=== PATIENT | female | born 1925 | race Caucasian/White ===

== ENCOUNTER → 2016-10-06 | Outpatient (CLI) | payer BC ==
[~2016-10-06] MED LIST: ACET325T96 PO; AMIO200T4 PO; ASPI81TA28 PO; ATOR-24 PO; Antibiotic PO; B-COCAP2 PO; BISA-16 PO; BUME2TAB3 PO; CALC500C3 PO; CLR10 PO; CRD200 PO; CRG625 PO; FAMO20TA11 PO; FAMO20TA9 PO; FERR1TAB23 PO; INSDGI SC; INSU100I2 SQ; LEVO100T PO; LEVO112T2 PO; LNX125 PO; MECL1TAB42 PO; METO-217 PO; METO25TA3 PO; MULT-513 PO; OXYC-57 PO; POLY335019 PO; RANI150T3 PO; ROSU10TA24 PO; ROSU5TAB PO; SENN-61 PO; SODIENE12 RE; VTMD PO; WARF2TAB PO
[2016-10-06 18:12] LABS: BASO % 0.6 %; BASO ABS # 0.04 K/uL (0-0.2); COMPLETE YES; EOS % 0.8 %; IG% 0.2 %; LYMPH ABS # 2.09 K/uL (1.2-3.4); MEAN CELL VOLUME 98.7 fL (80-100); MEAN CORPUSCULAR HEMOGLOBIN 30.9 pg (25-34); MEAN CORPUSCULAR HGB CONC 31.4 g/dl (32-36); MEAN PLATELET VOLUME 10.3 fL (7.4-10.4); MONO % 10.1 %; NEUT % 56.3 %; PLATELET COUNT 263 K/uL (130-400); RED BLOOD COUNT 3.75 M/uL (4.2-5.4); WHITE BLOOD COUNT 6.53 K/uL (4.8-10.8)
[2016-10-06 18:23] LABS: ALT/SGPT 30 U/L (12-78); AST/SGOT 40 U/L (15-37); BLOOD UREA NITROGEN 37 mg/dl (7-18); BUN/CREATININE RATIO 10.1 (10-20); CALCIUM 8.5 mg/dl (8.5-10.1); CARBON DIOXIDE 28 mmol/L (21-32); CHLORIDE 103 mmol/L (98-107); GLUCOSE 110 mg/dl (70-99); SODIUM 140 mmol/L (136-145)
[2016-10-06 18:32] LABS: CHOLESTEROL 129 mg/dl (0-200); CHOLESTEROL/HDL RATIO 1.6; HDL CHOLESTEROL 81 mg/dl; LDL CHOLESTEROL CALCULATED 30 mg/dl; TOTAL IRON BINDING CAPACITY 205 mcg/dl (250-450); TRIGLYCERIDES 89 mg/dl (0-150); VERY LOW DENSITY LIPOPROT CALC 18 mg/dl
[2016-10-07 06:27] LABS: ESTIMATED AVERAGE GLUCOSE 131 mg/dl; HA1C FLAG Normal (Normal)
== END | disposition home or self-care (01) ==
LOC: C.LABMFLN 08:07
PROVIDERS: ATTEND Family Medicine
DX: I48.91 Unspecified atrial fibrillation (principal); E78.00 Pure hypercholesterolemia, unspecified; E03.9 Hypothyroidism, unspecified; E55.9 Vitamin D deficiency, unspecified; I10 Essential (primary) hypertension; E21.3 Hyperparathyroidism, unspecified; D50.9 Iron deficiency anemia, unspecified; E11.21 Type 2 diabetes mellitus with diabetic nephropathy

== ENCOUNTER → 2016-12-15 | Day surgery (SDC) | payer BC ==
[2016-12-15] VITALS (7 sets, daily range): BP systolic 120–173; BP diastolic 62–75; PULSE 92–102; TEMP 36.3–36.7; O2SAT 94–97; Ht 160 cm; Wt 87.0 kg
[~2016-12-15] VITALS: Ht 160 cm; Wt 87.0 kg
[~2016-12-15] MED LIST changes: +ARISTA ABSORBABLE HEMOSTAT 3GM TOP ONE; -ASPI81TA28 PO; +CEFAZOLIN 1000MG/55 ML D5W IV SCH; +CEFAZOLIN 2000 MG/60 ML D5W IV SCH; +CEFAZOLIN IV 1,000 MG in DEXTROSE 5% 50ML 50 ML IV ONE; -CRG625 PO; +D5W AND 1/4NSS 1,000 ML IV SCH; -FAMO20TA9 PO; +FENTANYL CITRATE INJ 50 MCG/1 ML 2 ML VIAL IV ONE; +FENTANYL CITRATE INJ 50 MCG/1 ML 2 ML VIAL ONE; +HEPARIN SOD (PORCINE) 5000 UNIT/ML 1 ML VIAL IV ONE; +HEPARIN SOD (PORCINE) 5000 UNIT/ML 1 ML VIAL ONE; +LIDOCAINE HCL 1% 20 ML VIAL SQ ONE; -MECL1TAB42 PO; +MIDAZOLAM HCL 1 MG/ML 2ML VIAL ONE; -WARF2TAB PO
--- NOTE | 2016-12-15 10:05 | History and Physical ---
History & Physical Date of Service Dec 15, 2016. 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 Pt states has been on HD only 1-2 weeks, but has already had her permcath replaced before d/t malfunctioning. Denies KUMARI, fever, chills, chest pain, SOB, abd pain, N/V, rest pain, claudication, other complaints. Allergies Coded Allergies: No Known Allergies (Unverified , 06/22/14) Home Medications Scheduled Aspirin (Aspir-81), 81 MG PO DAILY Bumetanide (Bumex), 1 MG PO DAILY Candesartan Cilexetil (Atacand), 2 MG PO DAILY Carvedilol (Carvedilol), 6.25 MG PO BID Ergocalciferol (Vitamin D), 50,000 INTER.UNIT PO WK Famotidine (Pepcid), 20 MG PO HS Ferrous Sulfate (Iron), 325 MG PO DAILY Levothyroxine Sodium (Levothyroxine Sodium), 75 MCG PO DAILY Meclizine Hcl (Meclizine Hcl), 25 MG PO QID Pediatric Multiple Vitamin W/ (Centrum Kids Complete), 1 TAB PO DAILY Rosuvastatin Calcium (Crestor), 10 MG PO DAILY Warfarin Sodium (Coumadin), 2 MG PO DIRECTED Surgical / Medical History Hx Cardiac Surgery: Yes (CABG X 4 AND BIOPROSTETIC AORTIC VALVE REPLACEMENT ( 2011)) Hx Abdominal Surgery: Yes (HYSTERECTOMY; ; PRIOR GASTROSTOMY TUBE) Hx Cancer Surgery: No Hx Thoracic Surgery: Yes (INCISIONAL BREAST BIOPSY) Hx Orthopedic: Yes (LEFT TKA) Hx Urinary Tract Surgery: No Past Medical/Surgical History: CABG, Diabetes, Heart Disease, High Cholesterol , Hypertension, Kidney Disease, Valve Replacement Family History + for DMII, HTN, CAD Social History Smoking Status: Never Smoker Hx Alcohol Use - Type & Amnt: No Hx Substance Use -Type & Amnt: No Review of Systems Constitutional: No chills, No fever, No malaise Skin: No change in color Eyes: No visual changes ENMT: No sore throat Respiratory: No LAND, No cough, No hemoptysis, No short of breath Cardiovascular: + edema (chronic), + palpitations, + syncope, No chest pain, No intermittent claudication Gastrointestinal: + abdominal pain, + nausea, + vomiting Genitourinary - Female: + dysuria, + hematuria Neurologic: + dizziness, + headache, + numbness, + tingling Physical Exam Constitutional: General Apperance: well-nourished, well-developed, obese Level of Distress: NAD, chronically ill Ambulation: ambulation with walker Psychiatric: Mental Status: active & alert, normal mood, normal affect Orientation: oriented except where noted, to time, to place, to person Memory: recent memory normal, remote memory normal Head: normocephalic, atraumatic Eyes: EOM: EOMI ENMT: normal ENT inspection, hearing grossly normal Neck: supple, trachea midline Lungs: Respiratory effort: no dyspnea Auscultation: no wheezing, no rales/crackles, no rhonchi, decreased breath sounds Cardiovascular: Apical Impulse: not displaced Heart Auscultation: no rubs, murmur, pertinent finding (irregular) Peripheral Pulses: Pulses: full and equal, in all extremities except if noted Bruits: none appreciated Carotid Pulse: normal on the left, normal on the right Brachial Pulses: normal on the left, normal on the right Radial Pulse: normal on the left, normal on the right Femoral Pulse: normal on the left, normal on the right Posterior Tibialis Pulse: decreased on the left, decreased on the right Dorsalis Pedis Pulse: decreased on the left, decreased on the right Abdomen: Bowel Sounds: normal Inspection & Palpation: soft, no tenderness, guarding & rebound, distended ( secondary to body habitus) Musculoskeletal: normal strength (5/5 throughout), normal tone Extremities: Upper Right: no cyanosis, no varicosities, edema Upper Left: no cyanosis, no varicosities, no palpable cord, edema Lower Right: no cyanosis, no varicosities, no palpable cord, edema Lower Left: no cyanosis, no varicosities, edema Neurologic: Cranial Nerves: grossly intact Sensation: grossly intact Assessment and Plan ASSESSMENT and PLAN: ESRD on HD, malfunctioning permcath Plan: Patient for exchange of her permcath. I have discussed the risks options and benefits of the procedure with the patient. The patient understands the risks options and benefits and agrees to the procedure.
--- NOTE | 2016-12-15 10:05 | Procedure Note ---
Pre-Mod Sedation Assessment General Date of Moderate Sedation: Dec 15, 2016. Pre-Sedation Airway Assessment Smoking Status: Never Smoker Mallampati Classification: Class I ASA Classification: Class II Notes The planned sedation has been discussed with the patient and consent obtained. I have identified the patient, determined the appropriateness of sedation and have assessed the patient immediately prior to the procedure. All medicine(s) and interventions are by my order.
--- NOTE | 2016-12-15 12:23 | History & Physical Bridge Note ---
H&P Re-Evaluation Bridge Note: I have examined the patient, reviewed the History & Physical and in the interval since the performance of the History & Physical I have noted the following changes of clinical significance: No changes noted
--- NOTE | 2016-12-15 13:21 | [facility] Post Operative Brief Note ---
Immediate Operative Summary Operative Date Dec 15, 2016. Pre-Operative Diagnosis Malfunctioning Perm Catheter Post-Operative Diagnosis Same Procedure(s) Performed Exchange of Perm Catheter Fluoro for postioning Surgeon Dr. Schaefer Marine Geologist Surgeon(s) Dr. Garcia Estimated Blood Loss 3 Findings tip in distal SVC Specimens Explant Perm catheter Anesthesia Local Complication(s) None Disposition
--- NOTE | 2016-12-15 13:22 | Discharge Instructions ---
Discharge Instructions Date of Service Dec 15, 2016. Visit Reason for Visit: Malfunctioning Perm Cath Discharge Discharge Diagnosis / Problem: Malfunctioning permcath Discharge Goals Goal(s): Therapeutic intervention Activity Recommendations Activity Limitations: per Instructions/Follow-up section Anesthesia . Post Anesthesia Instructions: If you have had General Anesthesia or IV Sedation: * Do not drive today. * Resume driving when surgeon permits. * Do not make important decisions or sign legal documents today. * Call surgeon for: 1. Temperature elevations greater than 101 degrees F. 2. Uncontrollable pain. 3. Excessive bleeding. 4. Persistent nausea and vomiting. 5. Medication intolerance (nausea, vomiting or rash). * For nausea and vomiting use only clear liquids such as: tea, soda, bouillon until nausea subsides, then gradually increase diet as tolerated. * If you have any concerns or questions, call your surgeon's office. If physician is unavailable and it is an emergency, call 911 or go to the nearest emergency room. . Instructions / Follow-Up Instructions / Follow-Up Call [phone] with any questions or concerns. Bring this sheet with you to dialysis and give it to the nurses. May use permcath for dialysis SPECIAL CARE INSTRUCTIONS: Medications: * Continue to take your medications as directed. If you have been given a prescription for Plavix, please fill it immediately and take as directed. Incision Care: * Your puncture site may have some bruising and minor swelling for about one week. * You will have a small dressing covering your puncture site. You may remove the dressing after 24 hours and shower. You may let the warm soapy water run over it, but be sure to dry the puncture site well and keep it dry. * DO NOT IMMERSE THE INCISION IN A TUB/POOL/etc. UNTIL HEALED. * Puncture sites should be kept covered with a band-aid until it begins to heal. Restrictions: * Depending on whether you leg or arm was punctured to access the arteries, you will be required to lay flat, hold your arm still, or both, for about 4 hours after the procedure to prevent bleeding. * Limit your activity for the first 48 hours. You may walk and go up and down steps. Avoid excessive bending or movement at the puncture site. Possible Complications: * Excessive Swelling - after blood flow is improved you may notice increased swelling in the lower legs. This is a normal response. This usually depends on the amount of blockages in the leg, how long they have been there prior to your procedure and how much blood flow was restored. Elevating your legs will help to improve this. Please notify our office ([phone] ) if the swelling does not go away after lying in bed overnight. * Infection/Drainage/Bleeding - Drainage or bleeding from the puncture site should be minimal. If you have excessive bleeding or drainage, call our office ([phone]) right away. * Pain - You may experience some mild pain or soreness at your puncture site. If your pain does not improve, please contact our office ([phone]). Call your doctor and seek emergent treatment if you develop: * Temperature above 101 degrees * Any fever or chills * Any redness or purulent drainage from the puncture site * Any new dusky/blue colored toes or feet with coolness or sharp or aching pain. SKIN IRRITATION: * You may experience some redness and/or swelling in the area where radiation was administered. If any skin irritation occurs, please contact your family physician. FOLLOW UP VISIT: Keep any scheduled doctor appointments. Diet Recommendations Recommended Home Diet: resume previous diet Procedures Procedures Performed: Exchange of Perm Catheter Fluoro for postioning Pending Studies Studies pending at discharge: no Medical Emergencies . Who to Call and When: Medical Emergencies: If at any time you feel your situation is an emergency, please call 911 immediately. . Non-Emergent Contact Non-Emergency issues call your: Surgeon . . "Provider Documentation" section prepared by Jon Garcia.
--- NOTE | 2016-12-15 13:41 | DIAGNOSTIC IMAGING REPORT ---
DATE OF PROCEDURE: 12/15/2016 PREOPERATIVE DIAGNOSIS: Malfunctioning right internal jugular tunneled dialysis catheter. POSTOPERATIVE DIAGNOSIS: Same. PROCEDURE PERFORMED: Exchange of right internal jugular tunneled dialysis catheter. SURGEON: Jon Garcia MD MELON PACKER: Jama Schaefer MD ANESTHESIA: Local plus fentanyl. INDICATIONS: This is an 89-year-old female who is currently on dialysis via a right IJ tunneled dialysis catheter. This was placed several months ago. During her last attempted dialysis session, they were unable to run her through the catheter. She presented today for interrogation and exchange of the tunneled dialysis catheter for maintenance of long-term access for hemodialysis. DESCRIPTION OF PROCEDURE: The patient was brought to the endovascular suite and placed in the supine position. The right neck and chest were prepped and draped in normal sterile fashion. A timeout was performed and all parties agreed to correct patient and procedure to be performed. Appropriate surgical prophylactic antibiotics were administered within 1 hour of the incision. A wire was placed through the previous tunneled dialysis catheter. The wire passed easily. The entire tract was numbed with lidocaine anesthetic. Using a curved hemostat, the tract of the catheter was gently dilated. The cuff was identified. There was a strong fibrin band, which had formed around the cuff. This was excised with an 11 blade. Once this was done, the catheter was removed easily. It was replaced with a new tunnel dialysis catheter through the same tract. Completion imaging showed the catheter to be in good position at the level of the cavoatrial junction. All ports flushed easily. Heparin was instilled in the end of each port. The new catheter was sutured in place. The patient was transferred to her room in satisfactory condition with no apparent complications.
== END | disposition home or self-care (01) ==
LOC: C.ACU 09:58
PROVIDERS: ATTEND Surgery Vascular Surgery
DX: T82.599A Other mechanical complication of unspecified cardiac and vascular devices and implants, initial encounter (principal); I12.0 Hypertensive chronic kidney disease with stage 5 chronic kidney disease or end stage renal disease; N18.6 End stage renal disease; I25.10 Atherosclerotic heart disease of native coronary artery without angina pectoris; E78.00 Pure hypercholesterolemia, unspecified; Y84.8 Other medical procedures as the cause of abnormal reaction of the patient, or of later complication, without mention of misadventure at the time of the procedure; Z99.2 Dependence on renal dialysis; Z95.1 Presence of aortocoronary bypass graft; Z95.2 Presence of prosthetic heart valve; E11.9 Type 2 diabetes mellitus without complications

== ENCOUNTER → 2016-12-22 | Outpatient (CLI) | payer BC ==
[~2016-12-22] MED LIST changes: -AMIO200T4 PO; -ARISTA ABSORBABLE HEMOSTAT 3GM TOP ONE; -ATOR-24 PO; -BISA-16 PO; -CEFAZOLIN 1000MG/55 ML D5W IV SCH; -CEFAZOLIN 2000 MG/60 ML D5W IV SCH; -CEFAZOLIN IV 1,000 MG in DEXTROSE 5% 50ML 50 ML IV ONE; -D5W AND 1/4NSS 1,000 ML IV SCH; -FENTANYL CITRATE INJ 50 MCG/1 ML 2 ML VIAL IV ONE; -FENTANYL CITRATE INJ 50 MCG/1 ML 2 ML VIAL ONE; -FERR1TAB23 PO; -HEPARIN SOD (PORCINE) 5000 UNIT/ML 1 ML VIAL IV ONE; -HEPARIN SOD (PORCINE) 5000 UNIT/ML 1 ML VIAL ONE; -INSU100I2 SQ; -LEVO112T2 PO; -LIDOCAINE HCL 1% 20 ML VIAL SQ ONE; -MIDAZOLAM HCL 1 MG/ML 2ML VIAL ONE; -MULT-513 PO; -RANI150T3 PO; -SODIENE12 RE
[2016-12-22 18:41] LABS: BASO % 0.5 %; BASO ABS # 0.04 K/uL (0-0.2); COMPLETE YES; EOS % 2.2 %; HEMATOCRIT 35.8 % (37-47); IG% 0.1 %; LYMPH ABS # 2.33 K/uL (1.2-3.4); MEAN CELL VOLUME 98.4 fL (80-100); MEAN CORPUSCULAR HEMOGLOBIN 29.9 pg (25-34); MEAN CORPUSCULAR HGB CONC 30.4 g/dl (32-36); MEAN PLATELET VOLUME 10.2 fL (7.4-10.4); NEUT % 59.2 %; PLATELET COUNT 281 K/uL (130-400); RED BLOOD COUNT 3.64 M/uL (4.2-5.4); WHITE BLOOD COUNT 8.33 K/uL (4.8-10.8)
[2016-12-22 18:43] LABS: BLOOD UREA NITROGEN 52 mg/dl (7-18); BUN/CREATININE RATIO 13.4 (10-20); CALCIUM 8.9 mg/dl (8.5-10.1); CARBON DIOXIDE 27 mmol/L (21-32); CHLORIDE 106 mmol/L (98-107); GLUCOSE 169 mg/dl (70-99); POTASSIUM 4.9 mmol/L (3.5-5.1); SODIUM 140 mmol/L (136-145)
== END | disposition home or self-care (01) ==
LOC: C.LABMFLN 15:08
PROVIDERS: ATTEND Internal Medicine Nephrology
DX: N18.9 Chronic kidney disease, unspecified (principal)

== ENCOUNTER 2016-12-24 06:55 | Day surgery (SDC) | payer BC ==
[~2016-12-24] VITALS: Ht 160 cm; Wt 90.0 kg
[~2016-12-24 06:55] MED LIST changes: -Antibiotic PO; +CEFAZOLIN 2000 MG/60 ML D5W 60 ML IV SCH; -CRD200 PO; -METO25TA3 PO; -OXYC-57 PO; -ROSU5TAB PO; -VTMD PO
[2016-12-24 07:24] VITALS: BP 128/85; PULSE 123; TEMP 36.8; O2SAT 98; Ht 160 cm; Wt 90.0 kg
[2016-12-24] MEDS ORDERED: D5W AND 1/4NSS 1,000 ML IV SCH (07:45)
--- NOTE | 2016-12-24 07:54 | History and Physical ---
History & Physical Date of Service Dec 24, 2016. 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 Pt states has not had HD for past week d/t problems with catheter. Is scheduled for AVF creation next week. Denies KUMARI, fever, chills, chest pain, SOB, abd pain, N/V, rest pain, claudication, other complaints. Allergies Coded Allergies: No Known Allergies (Unverified , 06/22/14) Home Medications Scheduled Aspirin (Aspir-81), 81 MG PO DAILY Bumetanide (Bumex), 1 MG PO DAILY Candesartan Cilexetil (Atacand), 2 MG PO DAILY Carvedilol (Carvedilol), 6.25 MG PO BID Ergocalciferol (Vitamin D), 50,000 INTER.UNIT PO WK Famotidine (Pepcid), 20 MG PO HS Ferrous Sulfate (Iron), 325 MG PO DAILY Levothyroxine Sodium (Levothyroxine Sodium), 75 MCG PO DAILY Meclizine Hcl (Meclizine Hcl), 25 MG PO QID Pediatric Multiple Vitamin W/ (Centrum Kids Complete), 1 TAB PO DAILY Rosuvastatin Calcium (Crestor), 10 MG PO DAILY Warfarin Sodium (Coumadin), 2 MG PO DIRECTED Surgical / Medical History Hx Cardiac Surgery: Yes (CABG X 4 AND BIOPROSTETIC AORTIC VALVE REPLACEMENT ( 2011)) Hx Abdominal Surgery: Yes (HYSTERECTOMY; ; PRIOR GASTROSTOMY TUBE) Hx Cancer Surgery: No Hx Thoracic Surgery: Yes (INCISIONAL BREAST BIOPSY) Hx Orthopedic: Yes (LEFT TKA) Hx Urinary Tract Surgery: No Past Medical/Surgical History: CABG, Diabetes, Heart Disease, High Cholesterol , Hypertension, Kidney Disease, Valve Replacement Family History + for DMII, HTN, CAD Social History Smoking Status: Never Smoker Hx Alcohol Use - Type & Amnt: No Hx Substance Use -Type & Amnt: No Review of Systems Constitutional: No chills, No fever, No malaise Skin: No change in color Eyes: No visual changes ENMT: No sore throat Respiratory: No LAND, No cough, No hemoptysis, No short of breath Cardiovascular: + edema (chronic), + palpitations, + syncope, No chest pain, No intermittent claudication Gastrointestinal: + abdominal pain, + nausea, + vomiting Genitourinary - Female: + dysuria, + hematuria Neurologic: + dizziness, + headache, + numbness, + tingling Physical Exam Constitutional: General Apperance: well-nourished, well-developed, obese Level of Distress: NAD, chronically ill Ambulation: ambulation with walker Psychiatric: Mental Status: active & alert, normal mood, normal affect Orientation: oriented except where noted, to time, to place, to person Memory: recent memory normal, remote memory normal Head: normocephalic, atraumatic Eyes: EOM: EOMI ENMT: normal ENT inspection, hearing grossly normal Neck: supple, trachea midline Lungs: Respiratory effort: no dyspnea Auscultation: no wheezing, no rales/crackles, no rhonchi, decreased breath sounds Cardiovascular: Apical Impulse: not displaced Heart Auscultation: no rubs, murmur, pertinent finding (irregular) Peripheral Pulses: Pulses: full and equal, in all extremities except if noted Bruits: none appreciated Carotid Pulse: normal on the left, normal on the right Brachial Pulses: normal on the left, normal on the right Radial Pulse: normal on the left, normal on the right Femoral Pulse: normal on the left, normal on the right Posterior Tibialis Pulse: decreased on the left, decreased on the right Dorsalis Pedis Pulse: decreased on the left, decreased on the right Abdomen: Bowel Sounds: normal Inspection & Palpation: soft, no tenderness, guarding & rebound, distended ( secondary to body habitus) Musculoskeletal: normal strength (5/5 throughout), normal tone Extremities: Upper Right: no cyanosis, no varicosities, edema Upper Left: no cyanosis, no varicosities, no palpable cord, edema Lower Right: no cyanosis, no varicosities, no palpable cord, edema Lower Left: no cyanosis, no varicosities, edema Neurologic: Cranial Nerves: grossly intact Sensation: grossly intact Assessment and Plan ASSESSMENT and PLAN: ESRD on HD, malfunctioning permcath Plan: Patient for exchange of her permcath. I have discussed the risks options and benefits of the procedure with the patient. The patient understands the risks options and benefits and agrees to the procedure. Patient was seen, examined, and chart reviewed. Agree with exam and treatment plan of the Vascular PA. I have discussed the risks options and benefits of the procedure with the patient. The patient understands the risks options and benefits and agrees to the procedure.
--- NOTE | 2016-12-24 11:13 | Procedure Note ---
Pre-Mod Sedation Assessment General Date of Moderate Sedation: Dec 24, 2016. Vital Signs: Vital Signs Past 12 Hours Date Time Temp Pulse Resp B/P Pulse Ox O2 Delivery O2 Flow Rate FiO2 12/24/16 07:24 36.8 123 20 128/85 98 Room Air Pre-Sedation Airway Assessment Smoking Status: Never Smoker Mallampati Classification: Class I ASA Classification: Class II Notes The planned sedation has been discussed with the patient and consent obtained. I have identified the patient, determined the appropriateness of sedation and have assessed the patient immediately prior to the procedure. All medicine(s) and interventions are by my order.
[2016-12-24] MEDS ORDERED: FENTANYL CITRATE INJ 50 MCG/1 ML 2 ML VIAL IV ONE (11:25)
[2016-12-24] MEDS ORDERED: HEPARIN SOD (PORCINE) 5000 UNIT/ML 1 ML VIAL IV ONE (11:36)
[2016-12-24] MEDS ORDERED: LIDOCAINE HCL 1% 20 ML VIAL INFIL ONE (11:36)
--- NOTE | 2016-12-24 11:40 | [facility] Post Operative Brief Note ---
Immediate Operative Summary Operative Date Dec 24, 2016. Pre-Operative Diagnosis Perm cath Exchange Post-Operative Diagnosis Same Procedure(s) Performed Perm Cath Exchange Surgeon Radha Seismometer Operator Surgeon(s) Olive Estimated Blood Loss 4 Findings tip in distal SVC Specimens Perm Cath Anesthesia Local Complication(s) None Disposition
--- NOTE | 2016-12-24 11:44 | Discharge Instructions ---
Discharge Instructions Date of Service Dec 24, 2016. Visit Reason for Visit: Malfunctioning Perm Cath Discharge Discharge Diagnosis / Problem: Malfunctioning permcath Discharge Goals Goal(s): Therapeutic intervention Activity Recommendations Activity Limitations: per Instructions/Follow-up section Anesthesia . Post Anesthesia Instructions: If you have had General Anesthesia or IV Sedation: * Do not drive today. * Resume driving when surgeon permits. * Do not make important decisions or sign legal documents today. * Call surgeon for: 1. Temperature elevations greater than 101 degrees F. 2. Uncontrollable pain. 3. Excessive bleeding. 4. Persistent nausea and vomiting. 5. Medication intolerance (nausea, vomiting or rash). * For nausea and vomiting use only clear liquids such as: tea, soda, bouillon until nausea subsides, then gradually increase diet as tolerated. * If you have any concerns or questions, call your surgeon's office. If physician is unavailable and it is an emergency, call 911 or go to the nearest emergency room. . Instructions / Follow-Up Instructions / Follow-Up Take this to dialysis with you. May use permcath for dialysis Call [phone] with any questions or concerns. SPECIAL CARE INSTRUCTIONS: Medications: * Continue to take your medications as directed. If you have been given a prescription for Plavix, please fill it immediately and take as directed. Incision Care: * Your puncture site may have some bruising and minor swelling for about one week. * You will have a small dressing covering your puncture site. You may remove the dressing after 24 hours and shower. You may let the warm soapy water run over it, but be sure to dry the puncture site well and keep it dry. * DO NOT IMMERSE THE INCISION IN A TUB/POOL/etc. UNTIL HEALED. * Puncture sites should be kept covered with a band-aid until it begins to heal. Restrictions: * Depending on whether you leg or arm was punctured to access the arteries, you will be required to lay flat, hold your arm still, or both, for about 4 hours after the procedure to prevent bleeding. * Limit your activity for the first 48 hours. You may walk and go up and down steps. Avoid excessive bending or movement at the puncture site. Possible Complications: * Excessive Swelling - after blood flow is improved you may notice increased swelling in the lower legs. This is a normal response. This usually depends on the amount of blockages in the leg, how long they have been there prior to your procedure and how much blood flow was restored. Elevating your legs will help to improve this. Please notify our office ([phone] ) if the swelling does not go away after lying in bed overnight. * Infection/Drainage/Bleeding - Drainage or bleeding from the puncture site should be minimal. If you have excessive bleeding or drainage, call our office ([phone]) right away. * Pain - You may experience some mild pain or soreness at your puncture site. If your pain does not improve, please contact our office ([phone]). Call your doctor and seek emergent treatment if you develop: * Temperature above 101 degrees * Any fever or chills * Any redness or purulent drainage from the puncture site * Any new dusky/blue colored toes or feet with coolness or sharp or aching pain. SKIN IRRITATION: * You may experience some redness and/or swelling in the area where radiation was administered. If any skin irritation occurs, please contact your family physician. FOLLOW UP VISIT: Keep any scheduled doctor appointments. Diet Recommendations Recommended Home Diet: resume previous diet Procedures Procedures Performed: Perm Cath Exchange Pending Studies Studies pending at discharge: no Medical Emergencies . Who to Call and When: Medical Emergencies: If at any time you feel your situation is an emergency, please call 911 immediately. . Non-Emergent Contact Non-Emergency issues call your: Surgeon . . "Provider Documentation" section prepared by Jon Garcia.
[2016-12-24 11:45] VITALS: BP 153/78; PULSE 105; TEMP 36.8; O2SAT 96
[2016-12-24 12:15] VITALS: BP 134/59; PULSE 90; TEMP 36.7; O2SAT 95
[2016-12-24 12:45] VITALS: BP 129/60; PULSE 93; TEMP 36.5; O2SAT 93
--- NOTE | 2017-01-20 08:43 | DIAGNOSTIC IMAGING REPORT ---
DATE OF PROCEDURE: 12/24/2016 PREOPERATIVE DIAGNOSIS: Malfunctioning right internal jugular tunneled dialysis catheter. POSTOPERATIVE DIAGNOSIS: Same. PROCEDURE PERFORMED: Exchange of right internal jugular and right chest tunneled dialysis catheter. SURGEON: Dr. Jon Garcia. SPEECH LANGUAGE PATHOLOGIST PRN: Dr. Jama Schaefer. ANESTHESIA: Local plus fentanyl. ESTIMATED BLOOD LOSS: 3 mL. COMPLICATIONS: None. INDICATIONS: This is a 89-year-old female who had end-stage renal disease requiring dialysis. Approximately 10 days ago she underwent placement of a right internal jugular chest wall tunneled dialysis catheter. She was able to dialyze through it once however was not able to run subsequent to that. Imaging and exchange of the catheter was indicated for maintenance of long-term dialysis access. The patient consented to the above procedure. PROCEDURE: The patient was brought to the endovascular suite and placed in the supine position. The right neck and chest prepped and draped in normal sterile fashion. A timeout was performed and all parties agreed to correct patient and procedure to be performed. Appropriate surgical prophylactic antibiotics were administered 1 hour before the incision. Fluoroscopic imaging showed the catheter to be somewhat retracted from its final. A wire was then brought onto the field and inserted through one of the ports. This was taken up to the level of the superior vena cava. The tract was numbed with local anesthetic after all sutures were removed. The previous catheter was removed. A 19 [place] tunneled dialysis catheter with a preformed curve was then brought onto the field. It was thought that this would sit better given the patient's elongated anatomy. This catheter was inserted over the wire. The tip of the catheter sat at the level of the cavoatrial junction. This catheter was sutured in place, it was flushed easily. Heparin was instilled in both of the ports. The patient was awakened and transferred to recovery room in satisfactory condition. Final fluoroscopic imaging showed the catheter to be in good position. I, Dr. Garcia was present and scurbbed for the entire procedure. [facility] CENTERJean
[2017-03-24] MEDS ORDERED: Antibiotic PO (09:35)
== END 2016-12-24 13:00 | disposition home or self-care (01) ==
LOC: C.ACU 06:55
PROVIDERS: ATTEND Surgery Vascular Surgery
DX: T82.9XXA Unspecified complication of cardiac and vascular prosthetic device, implant and graft, initial encounter (principal); N18.6 End stage renal disease; I12.9 Hypertensive chronic kidney disease with stage 1 through stage 4 chronic kidney disease, or unspecified chronic kidney disease; Y84.8 Other medical procedures as the cause of abnormal reaction of the patient, or of later complication, without mention of misadventure at the time of the procedure; I25.10 Atherosclerotic heart disease of native coronary artery without angina pectoris; E11.9 Type 2 diabetes mellitus without complications; I48.91 Unspecified atrial fibrillation; Z99.2 Dependence on renal dialysis; Z95.1 Presence of aortocoronary bypass graft; Z95.2 Presence of prosthetic heart valve; Z79.82 Long term (current) use of aspirin; Z79.01 Long term (current) use of anticoagulants

== ENCOUNTER 2016-12-31 06:32 | Day surgery (SDC) | payer BC ==
[2016-11-13 08:26] VITALS: BMI 35.0
--- NOTE | 2016-11-13 09:15 | PAT Medication Instructions ---
Service Date Nov 13, 2016. Current Home Medication List Acetaminophen Tab (Tylenol), 325 MG PO Q6 PRN for Pain Acetaminophen Tab (Tylenol), 650 MG PO HS Amiodarone Hcl (Cordarone), 200 MG PO QAM Atorvastatin (Lipitor), 1 TAB PO HS Bisacodyl (Dulcolax), 2 TAB PO UD Bumetanide (Bumex), 1 TAB PO QAM Ergocalciferol (Vitamin D), 50,000 INTER.UNIT PO WK Ferrous Sulfate (Iron), 325 MG PO DAILY Insulin Glargine (Lantus), 6 UNITS SC QPM Insulin Lispro (Human) (Humalog Kwikpen), 1 DOSE SQ AC Levothyroxine Sodium (Synthroid), 1 TAB PO QAM Loratadine (Claritin), 10 MG PO DAILY Metoprolol Succinate (Toprol Xl), 50 MG PO QAM Multivitamins/Minerals (Mvi With Minerals), 1 TAB PO DAILY Polyethylene Glycol 3350 (Miralax), 17 GM PO DAILY Ranitidine Hcl (Zantac), 150 MG PO BID Senna (Senokot), 2 TAB PO HS Sodium Phosphates (Enema Disposable), 1 DOSE RE UD Vitamin B Cmplx/Vitc/Folic Ac (Nephrocaps), 1 CAP PO PM Medication Instructions For Your Scheduled Surgery - Continue as directed: Ergocalciferol (Vitamin D), 50,000 INTER.UNIT PO WK - Hold the following medications the morning of surgery: Sodium Phosphates (Enema Disposable), 1 DOSE RE UD Ranitidine Hcl (Zantac), 150 MG PO BID Polyethylene Glycol 3350 (Miralax), 17 GM PO DAILY Multivitamins/Minerals (Mvi With Minerals), 1 TAB PO DAILY Loratadine (Claritin), 10 MG PO DAILY Insulin Lispro (Human) (Humalog Kwikpen), 1 DOSE SQ AC Ferrous Sulfate (Iron), 325 MG PO DAILY Bisacodyl (Dulcolax), 2 TAB PO UD Bumetanide (Bumex), 1 TAB PO QAM - Take the following medications the morning of surgery with a sip of water: Metoprolol Succinate (Toprol Xl), 50 MG PO QAM Levothyroxine Sodium (Synthroid), 1 TAB PO QAM Amiodarone Hcl (Cordarone), 200 MG PO QAM Acetaminophen Tab (Tylenol), 325 MG PO Q6 PRN for Pain - Take the following medications as scheduled the night before surgery: Vitamin B Cmplx/Vitc/Folic Ac (Nephrocaps), 1 CAP PO PM Sodium Phosphates (Enema Disposable), 1 DOSE RE UD Ranitidine Hcl (Zantac), 150 MG PO BID Senna (Senokot), 2 TAB PO HS Insulin Glargine (Lantus), 6 UNITS SC QPM Insulin Lispro (Human) (Humalog Kwikpen), 1 DOSE SQ AC Atorvastatin (Lipitor), 1 TAB PO HS Acetaminophen Tab (Tylenol), 325 MG PO Q6 PRN for Pain Acetaminophen Tab (Tylenol), 650 MG PO HS If you have any questions please call us at [phone] (Moira Santamaria PA-C) or [phone] or [phone]
[2016-12-23 15:15] VITALS: BMI 33.0
--- NOTE | 2016-12-30 16:12 | History and Physical ---
History & Physical Date of Service Dec 30, 2016. 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 Pt had it exchanged. It worked for a couple of runs and now will not aspirate. She is admitted for both a permcath exchange and a left arm av fistula creation. Denies KUMARI, fever, chills, chest pain, SOB, abd pain, N/V , rest pain, claudication, other complaints. Allergies Coded Allergies: No Known Allergies (Unverified , 06/22/14) Home Medications Scheduled Aspirin (Aspir-81), 81 MG PO DAILY Bumetanide (Bumex), 1 MG PO DAILY Candesartan Cilexetil (Atacand), 2 MG PO DAILY Carvedilol (Carvedilol), 6.25 MG PO BID Ergocalciferol (Vitamin D), 50,000 INTER.UNIT PO WK Famotidine (Pepcid), 20 MG PO HS Ferrous Sulfate (Iron), 325 MG PO DAILY Levothyroxine Sodium (Levothyroxine Sodium), 75 MCG PO DAILY Meclizine Hcl (Meclizine Hcl), 25 MG PO QID Pediatric Multiple Vitamin W/ (Centrum Kids Complete), 1 TAB PO DAILY Rosuvastatin Calcium (Crestor), 10 MG PO DAILY Warfarin Sodium (Coumadin), 2 MG PO DIRECTED Surgical / Medical History Hx Cardiac Surgery: Yes (CABG X 4 AND BIOPROSTETIC AORTIC VALVE REPLACEMENT ( 2012)) Hx Abdominal Surgery: Yes (HYSTERECTOMY; ; PRIOR GASTROSTOMY TUBE) Hx Cancer Surgery: No Hx Thoracic Surgery: Yes (INCISIONAL BREAST BIOPSY) Hx Orthopedic: Yes (LEFT TKA) Hx Urinary Tract Surgery: No Past Medical/Surgical History: CABG, Diabetes, Heart Disease, High Cholesterol , Hypertension, Kidney Disease, Valve Replacement Family History + for DMII, HTN, CAD Social History Smoking Status: Never Smoker Hx Alcohol Use - Type & Amnt: No Hx Substance Use -Type & Amnt: No Review of Systems Constitutional: No chills, No fever, No malaise Skin: No change in color Eyes: No visual changes ENMT: No sore throat Respiratory: No LAND, No cough, No hemoptysis, No short of breath Cardiovascular: + edema (chronic), + palpitations, + syncope, No chest pain, No intermittent claudication Gastrointestinal: + abdominal pain, + nausea, + vomiting Genitourinary - Female: + dysuria, + hematuria Neurologic: + dizziness, + headache, + numbness, + tingling Physical Exam Constitutional: General Apperance: well-nourished, well-developed, obese Level of Distress: NAD, chronically ill Ambulation: ambulation with walker Psychiatric: Mental Status: active & alert, normal mood, normal affect Orientation: oriented except where noted, to time, to place, to person Memory: recent memory normal, remote memory normal Head: normocephalic, atraumatic Eyes: EOM: EOMI ENMT: normal ENT inspection, hearing grossly normal Neck: supple, trachea midline Lungs: Respiratory effort: no dyspnea Auscultation: no wheezing, no rales/crackles, no rhonchi, decreased breath sounds Cardiovascular: Apical Impulse: not displaced Heart Auscultation: no rubs, murmur, pertinent finding (irregular) Peripheral Pulses: Pulses: full and equal, in all extremities except if noted Bruits: none appreciated Carotid Pulse: normal on the left, normal on the right Brachial Pulses: normal on the left, normal on the right Radial Pulse: normal on the left, normal on the right Femoral Pulse: normal on the left, normal on the right Posterior Tibialis Pulse: decreased on the left, decreased on the right Dorsalis Pedis Pulse: decreased on the left, decreased on the right Abdomen: Bowel Sounds: normal Inspection & Palpation: soft, no tenderness, guarding & rebound, distended ( secondary to body habitus) Musculoskeletal: normal strength (5/5 throughout), normal tone Extremities: Upper Right: no cyanosis, no varicosities, edema Upper Left: no cyanosis, no varicosities, no palpable cord, edema Lower Right: no cyanosis, no varicosities, no palpable cord, edema Lower Left: no cyanosis, no varicosities, edema Neurologic: Cranial Nerves: grossly intact Sensation: grossly intact Assessment and Plan ASSESSMENT and PLAN: ESRD on HD, malfunctioning permcath Plan: Patient for exchange of her permcath and a left antecubital cephalic vein fistula creation.. I have discussed the risks options and benefits of the procedure with the patient. The patient understands the risks options and benefits and agrees to the procedure.
[~2016-12-31] VITALS: Ht 160 cm; Wt 86.8 kg
[~2016-12-31 06:32] MED LIST changes: +SODIUM CHLORIDE 0.9% 1000ML 1,000 ML IV SCH
[2016-12-31 07:13] LABS: HEMATOCRIT 35.3 % (37-47); MEAN CELL VOLUME 94.4 fL (80-100); MEAN CORPUSCULAR HEMOGLOBIN 29.1 pg (25-34); MEAN PLATELET VOLUME 9.6 fL (7.4-10.4); PLATELET COUNT 281 K/uL (130-400); RED BLOOD COUNT 3.74 M/uL (4.2-5.4); WHITE BLOOD COUNT 9.49 K/uL (4.8-10.8)
[2016-12-31 07:15] LABS: MEAN CORPUSCULAR HGB CONC 30.9 g/dl (32-36)
[2016-12-31] MEDS ORDERED: PROPOFOL IV EMULSION 10 MG/ML 20 ML VIAL IV ONE (07:19)
[2016-12-31] MEDS ORDERED: FENTANYL CITRATE INJ 50 MCG/1 ML 2 ML VIAL ONE (07:20)
[2016-12-31] MEDS ORDERED: THROMBIN FOR SOLN 20000 UNIT KIT ONE (07:20)
[2016-12-31] MEDS ORDERED: HEPARIN SOD (PORCINE) 1000 UNIT/ML 10 ML VIAL ONE ×2 (07:21→09:20)
[2016-12-31] MEDS ORDERED: BUPIVACAINE/EPINEPHRINE 0.5% MPF 1:200,000 30 ML VIAL ONE (07:21)
[2016-12-31] MEDS ORDERED: LIDOCAINE HCL 1% 20 ML VIAL ONE (07:21)
[2016-12-31] MEDS ORDERED: GELATIN SPONGE 12-7MM ONE (07:21)
[2016-12-31 07:23] LABS: PROTHROMBIN TIME (PATIENT) 10.8 SECONDS (9.0-12.0)
[2016-12-31 07:31] VITALS: BP 155/70; PULSE 71; TEMP 36.7; O2SAT 96; Ht 160 cm; Wt 86.8 kg
[2016-12-31] MEDS ORDERED: SODIUM CHLORIDE 0.9% 1000ML 1,000 ML IV PRN (07:33)
[2016-12-31 07:37] LABS: BUN/CREATININE RATIO 9.2 (10-20); CALCIUM 8.6 mg/dl (8.5-10.1); CREATININE 4.4 mg/dl (0.60-1.20); POTASSIUM 4.2 mmol/L (3.5-5.1)
[2016-12-31] MEDS ORDERED: HEPARIN SOD (PORCINE) 5000 UNIT/ML 1 ML VIAL ONE (07:37)
[2016-12-31] MEDS ORDERED: FENTANYL CITRATE INJ 50 MCG/1 ML 2 ML VIAL IV PRN (07:45)
[2016-12-31] MEDS ORDERED: ONDANSETRON INJ 2 MG/ML 2 ML VIAL IV PRN (07:45)
[2016-12-31] MEDS ORDERED: LIDOCAINE HCL 1% 20 ML VIAL INJ ONE (08:14)
[2016-12-31] MEDS ORDERED: HEPARIN SOD (PORCINE) 5000 UNIT/ML 1 ML VIAL IV ONE (08:20)
--- NOTE | 2016-12-31 09:18 | [facility] Post Operative Brief Note ---
Immediate Operative Summary Operative Date Dec 31, 2016. Pre-Operative Diagnosis End stage renal disease on hemodialysis, malfunctioning permcath. Post-Operative Diagnosis Same as preop. Procedure(s) Performed Creation of left arm Arterio-venous Fistula. Exchange of permcath, right internal jugular Fluoro Surgeon Dr. Garcia Tailor'S Aide Surgeon(s) Dr. Jama Schaefer Estimated Blood Loss 8 ML Findings tip in distal SVC, good thrill Specimens None. Anesthesia MAC Complication(s) None Disposition Recovery Room / PACU
[2016-12-31] MEDS ORDERED: OXYC-57 PO ×2 (09:20→09:21)
--- NOTE | 2016-12-31 09:22 | Discharge Instructions ---
Discharge Instructions Date of Service Dec 31, 2016. Visit Reason for Visit: End Stage Renal Disease Discharge Discharge Diagnosis / Problem: End stage renal disease, malfunctioning permcath Discharge Goals Goal(s): Therapeutic intervention Activity Recommendations Activity Limitations: per Instructions/Follow-up section Anesthesia . Post Anesthesia Instructions: If you have had General Anesthesia or IV Sedation: * Do not drive today. * Resume driving when surgeon permits. * Do not make important decisions or sign legal documents today. * Call surgeon for: 1. Temperature elevations greater than 101 degrees F. 2. Uncontrollable pain. 3. Excessive bleeding. 4. Persistent nausea and vomiting. 5. Medication intolerance (nausea, vomiting or rash). * For nausea and vomiting use only clear liquids such as: tea, soda, bouillon until nausea subsides, then gradually increase diet as tolerated. * If you have any concerns or questions, call your surgeon's office. If physician is unavailable and it is an emergency, call 911 or go to the nearest emergency room. . Instructions / Follow-Up Instructions / Follow-Up Bring this form to dialysis with you. May use permcath for dialysis ACTIVITY RECOMMENDATIONS: See Above SPECIAL CARE INSTRUCTIONS: Call your doctor if: * Temperature above 101 degrees * Pain not relieved by pain medicine ordered * There is increased drainage or redness from any incision * You have any unanswered questions or concerns. Diet Recommendations Recommended Home Diet: resume previous diet Procedures Procedures Performed: Creation of left arm Arterio-venous Fistula. Exchange of permcath, right internal jugular Fluoro Pending Studies Studies pending at discharge: no Medical Emergencies . Who to Call and When: Medical Emergencies: If at any time you feel your situation is an emergency, please call 911 immediately. . Non-Emergent Contact Non-Emergency issues call your: Surgeon . . "Provider Documentation" section prepared by Jon Garcia. [place] Drug Monitoring Program Search Results: patient reviewed within database, no issues identified
--- NOTE | 2016-12-31 09:51 | Anesthesiology Progress Note ---
Anesthesia Post Op Note Date & Time Dec 31, 2016 at 09:51 Vital Signs Pain Intensity: 0 Vital Signs Past 12 Hours Date Time Temp Pulse Resp B/P Pulse Ox O2 Delivery O2 Flow Rate FiO2 12/31/16 09:40 71 14 154/54 100 Mask 10 12/31/16 09:32 36.4 69 17 137/63 100 Mask 10 12/31/16 07:31 36.7 71 20 155/70 96 Room Air Notes Mental Status: alert / awake / arousable, participated in evaluation Pt Amnestic to Procedure: Yes Nausea / Vomiting: adequately controlled Pain: adequately controlled Airway Patency, RR, SpO2: stable & adequate BP & HR: stable & adequate Hydration State: stable & adequate Anesthetic Complications: no major complications apparent Pt doing well.
[2016-12-31 10:00] VITALS: BP 129/47; PULSE 70; TEMP 36.2; O2SAT 98
--- NOTE | 2016-12-31 10:10 | OPERATIVE REPORT ---
DATE OF OPERATION: 12/31/2016 PREOPERATIVE DIAGNOSIS: 1. End-stage renal disease. 2. Malfunctioning right internal jugular hemodialysis catheter. POSTOPERATIVE DIAGNOSIS: Same. PROCEDURE PERFORMED: 1. Repositioning and reinsertion of right IJ tunneled dialysis catheter. 2. Left antecubital brachiocephalic AV fistula. SURGEON: Jon Garcia M.D. ADDICTION MEDICINE PHYSICIAN: Jama Schaefer M.D. ANESTHESIA: General. ESTIMATED BLOOD LOSS: 10 mL. COMPLICATIONS: None. INDICATIONS: This is an 89-year-old female with end-stage renal disease, currently on hemodialysis. She currently dialyzes through a tunneled dialysis catheter. This has been repositioned multiple times and she continues to have ongoing issues with her dialysis runs. There is a prominent bulge of the catheter at the level of her neck. In addition, for nursing home dialysis access we also discussed possibility of placing a fistula. Preoperative vein mapping showed usable cephalic vein on the left side. The patient consented to the above procedure and agreed to proceed. PROCEDURE: The patient was brought to the hybrid suite and placed in the supine position. We started by repositioning the tunneled dialysis catheter. A timeout was performed and all parties agreed to correct patient and procedure to be performed. Appropriate prophylactic antibiotics were administered within 1 hour of the incision. The right neck and chest were prepped and draped in normal sterile fashion. A long angled Glidewire was inserted through the previous catheter and placed at the level of the inferior vena cava. Next a separate counterincision was made just above the clavicle where the catheter appeared to be taking a quite sharp angle. This dissection was deepened. Next, the entire tract was numbed with local anesthetic. The old catheter was slid out over the wire. Next a separate counterincision was made more laterally on the chest. It was felt that by retunneling this catheter, it would lay better. A tunneling sheath was used to tunnel from the new incision in the chest wall at the level of our counterincision up closer to the neck. The catheter was brought through this. It was reinserted through the wire. The catheter was then inserted into the internal jugular vein over the wire. Once this was done, the catheter laid quite well without the prominent bulge seen before. A completion fluoroscopic imaging showed the catheter to be in good position. It flushed and aspirated easily. The catheter was sutured in place and heparin was instilled into the ports. We then turned attention to performing the left antecubital fistula. A second timeout was performed and again all agreed to the correct patient and procedure to be performed. The left arm was prepped and draped in normal sterile fashion. An incision was made just below the antecubital crease. This was done after local anesthetic was instilled. The incision was deepened with electrocautery and the cephalic vein was identified. There was little bit of scar tissue around this vein. We then located the brachial artery just beneath the brachial sheath. It was soft and suitable for clamping. The vein was freed up for some ways. It did appear that there was 2 branches distally. These were tied off and the vein was transected. There was a good lumen and fair amount of backbleeding. A short 3-[place] catheter passed easily through the vein. The vein was deemed suitable for use. Three-thousand units of IV heparin was given. The brachial artery was clamped. An arteriotomy was made with 11 blade and extended with Falcon scissors. The cephalic vein was sewn to the brachial artery with a 6-0 Prolene suture in a continuous fashion. Prior to completion of the anastomosis, it was back bled, forward bled and flushed. The anastomosis was hemostatic. There was a good thrill in the fistula and her hand was warm and pink. The incision was closed with Vicryl for the deep tissues and subcuticular stitch for the skin. Glue and a sterile dressing were applied. The patient was transferred to recovery room in satisfactory condition with no apparent complications. I attest to the content of the Intraoperative Record and any orders documented therein. Any exceptio ns are noted below.
[2016-12-31 10:30] VITALS: BP 113/52; PULSE 70; TEMP 36.4; O2SAT 99
[2016-12-31 11:00] VITALS: BP 110/47; PULSE 70; TEMP 36.7; O2SAT 99
[2017-03-24] MEDS ORDERED: Antibiotic PO (09:35)
== END 2016-12-31 11:22 | disposition home or self-care (01) ==
LOC: C.ACU 06:32
PROVIDERS: ATTEND Surgery Vascular Surgery
DX: T82.41XA Breakdown (mechanical) of vascular dialysis catheter, initial encounter (principal); Y82.8 Other medical devices associated with adverse incidents; I12.0 Hypertensive chronic kidney disease with stage 5 chronic kidney disease or end stage renal disease; N18.6 End stage renal disease; E11.22 Type 2 diabetes mellitus with diabetic chronic kidney disease; Z99.2 Dependence on renal dialysis; I25.10 Atherosclerotic heart disease of native coronary artery without angina pectoris; Z95.1 Presence of aortocoronary bypass graft; Z95.810 Presence of automatic (implantable) cardiac defibrillator; Z79.899 Other long term (current) drug therapy; Z79.01 Long term (current) use of anticoagulants; Z95.2 Presence of prosthetic heart valve

== ENCOUNTER 2017-01-20 10:54 | Day surgery (SDC) | payer BC ==
[~2017-01-20] VITALS: Ht 160 cm; Wt 85.8 kg
--- NOTE | 2017-01-20 06:00 | History and Physical ---
History & Physical Date of Service Jan 20, 2017. 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 She had a left arm av fistula created. She recently developed left arm swelling and found to have a thrombus in her left axillary vein. Denies KUMARI, fever, chills, chest pain, SOB, abd pain, N/V, rest pain, claudication, other complaints. Allergies Coded Allergies: No Known Allergies (Unverified , 06/22/14) Home Medications Scheduled Aspirin (Aspir-81), 81 MG PO DAILY Bumetanide (Bumex), 1 MG PO DAILY Candesartan Cilexetil (Atacand), 2 MG PO DAILY Carvedilol (Carvedilol), 6.25 MG PO BID Ergocalciferol (Vitamin D), 50,000 INTER.UNIT PO WK Famotidine (Pepcid), 20 MG PO HS Ferrous Sulfate (Iron), 325 MG PO DAILY Levothyroxine Sodium (Levothyroxine Sodium), 75 MCG PO DAILY Meclizine Hcl (Meclizine Hcl), 25 MG PO QID Pediatric Multiple Vitamin W/ (Centrum Kids Complete), 1 TAB PO DAILY Rosuvastatin Calcium (Crestor), 10 MG PO DAILY Warfarin Sodium (Coumadin), 2 MG PO DIRECTED Surgical / Medical History Hx Cardiac Surgery: Yes (CABG X 4 AND BIOPROSTETIC AORTIC VALVE REPLACEMENT ( 2012)) Hx Abdominal Surgery: Yes (HYSTERECTOMY; ; PRIOR GASTROSTOMY TUBE) Hx Cancer Surgery: No Hx Thoracic Surgery: Yes (INCISIONAL BREAST BIOPSY) Hx Orthopedic: Yes (LEFT TKA) Hx Urinary Tract Surgery: No Past Medical/Surgical History: CABG, Diabetes, Heart Disease, High Cholesterol , Hypertension, Kidney Disease, Valve Replacement Family History + for DMII, HTN, CAD Social History Smoking Status: Never Smoker Hx Alcohol Use - Type & Amnt: No Hx Substance Use -Type & Amnt: No Review of Systems Constitutional: No chills, No fever, No malaise Skin: No change in color Eyes: No visual changes ENMT: No sore throat Respiratory: No LAND, No cough, No hemoptysis, No short of breath Cardiovascular: + edema (chronic), + palpitations, + syncope, No chest pain, No intermittent claudication Gastrointestinal: + abdominal pain, + nausea, + vomiting Genitourinary - Female: + dysuria, + hematuria Neurologic: + dizziness, + headache, + numbness, + tingling Physical Exam Constitutional: General Apperance: well-nourished, well-developed, obese Level of Distress: NAD, chronically ill Ambulation: ambulation with walker Psychiatric: Mental Status: active & alert, normal mood, normal affect Orientation: oriented except where noted, to time, to place, to person Memory: recent memory normal, remote memory normal Head: normocephalic, atraumatic Eyes: EOM: EOMI ENMT: normal ENT inspection, hearing grossly normal Neck: supple, trachea midline Lungs: Respiratory effort: no dyspnea Auscultation: no wheezing, no rales/crackles, no rhonchi, decreased breath sounds Cardiovascular: Apical Impulse: not displaced Heart Auscultation: no rubs, murmur, pertinent finding (irregular) Peripheral Pulses: Pulses: full and equal, in all extremities except if noted Bruits: none appreciated Carotid Pulse: normal on the left, normal on the right Brachial Pulses: normal on the left, normal on the right Radial Pulse: normal on the left, normal on the right Femoral Pulse: normal on the left, normal on the right Posterior Tibialis Pulse: decreased on the left, decreased on the right Dorsalis Pedis Pulse: decreased on the left, decreased on the right Abdomen: Bowel Sounds: normal Inspection & Palpation: soft, no tenderness, guarding & rebound, distended ( secondary to body habitus) Musculoskeletal: normal strength (5/5 throughout), normal tone Extremities: Upper Right: no cyanosis, no varicosities, edema Upper Left: no cyanosis, no varicosities, no palpable cord, significant edema, good thrill Lower Right: no cyanosis, no varicosities, no palpable cord, edema Lower Left: no cyanosis, no varicosities, edema Neurologic: Cranial Nerves: grossly intact Sensation: grossly intact Assessment and Plan ASSESSMENT and PLAN: ESRD on HD, Left arm swelling Plan: Patient for a left upper extremity venogram with possible intervention.. I have discussed the risks options and benefits of the procedure with the patient. The patient understands the risks options and benefits and agrees to the procedure.
[~2017-01-20 10:54] MED LIST changes: +CEFAZOLIN 1000MG/55 ML D5W IV SCH; +D5W AND 1/4NSS 1000 ML IV SCH; +OXYC-57 PO; +PATIENT'S HEIGHT AND/OR WEIGHT NEEDED SCH; -SODIUM CHLORIDE 0.9% 1000ML 1,000 ML IV SCH
[2017-01-20 11:18] VITALS: BP 166/46; PULSE 70; TEMP 36.3; O2SAT 98; Ht 160 cm; Wt 85.8 kg
--- NOTE | 2017-01-20 12:14 | Procedure Note ---
Pre-Mod Sedation Assessment General Date of Moderate Sedation: Jan 20, 2017. Vital Signs: Vital Signs Past 12 Hours Date Time Temp Pulse Resp B/P Pulse Ox O2 Delivery O2 Flow Rate FiO2 01/20/17 11:18 36.3 70 20 166/46 98 Room Air Pre-Sedation Airway Assessment Smoking Status: Never Smoker Mallampati Classification: Class I ASA Classification: Class II Notes The planned sedation has been discussed with the patient and consent obtained. I have identified the patient, determined the appropriateness of sedation and have assessed the patient immediately prior to the procedure. All medicine(s) and interventions are by my order.
[2017-01-20 12:33] VITALS: BP 166/46; PULSE 70; TEMP 36.3; O2SAT 98
[2017-01-20 12:37] VITALS: BP 166/46; PULSE 70; TEMP 36.3; O2SAT 98
[2017-01-20] MEDS ORDERED: FENTANYL CITRATE INJ 50 MCG/1 ML 2 ML VIAL ONE (12:38)
[2017-01-20] MEDS ORDERED: MIDAZOLAM HCL 1 MG/ML 2ML VIAL ONE (12:38)
[2017-01-20] MEDS ORDERED: LIDOCAINE HCL 1% 20 ML VIAL INJ ONE (13:16)
[2017-01-20] MEDS ORDERED: OPTIRAY 300 IV ONE (13:51)
--- NOTE | 2017-01-20 13:54 | [facility] Post Operative Brief Note ---
Immediate Operative Summary Operative Date Jan 20, 2017. Pre-Operative Diagnosis Left arm swelling Post-Operative Diagnosis same Procedure(s) Performed Left Arm Venogram, Percutaneous Transluminal Angioplasty Subclavian and Axillary Vein Ultrasound localization of brachial vein Surgeon Dr. Garcia Seasonal Tax Preparer Surgeon(s) none Estimated Blood Loss 5 ml Findings good flow through subclavian vein Specimens none Anesthesia Local Complication(s) None Disposition
--- NOTE | 2017-01-20 13:55 | Discharge Instructions ---
Discharge Instructions Date of Service Jan 20, 2017. Visit Reason for Visit: Subclavian Vein Occulsion Discharge Discharge Diagnosis / Problem: Left arm swelling Discharge Goals Goal(s): Therapeutic intervention Activity Recommendations Activity Limitations: per Instructions/Follow-up section Anesthesia . Post Anesthesia Instructions: If you have had General Anesthesia or IV Sedation: * Do not drive today. * Resume driving when surgeon permits. * Do not make important decisions or sign legal documents today. * Call surgeon for: 1. Temperature elevations greater than 101 degrees F. 2. Uncontrollable pain. 3. Excessive bleeding. 4. Persistent nausea and vomiting. 5. Medication intolerance (nausea, vomiting or rash). * For nausea and vomiting use only clear liquids such as: tea, soda, bouillon until nausea subsides, then gradually increase diet as tolerated. * If you have any concerns or questions, call your surgeon's office. If physician is unavailable and it is an emergency, call 911 or go to the nearest emergency room. . Instructions / Follow-Up Instructions / Follow-Up Call [phone] to schedule a follow up appointment if one not already scheduled. SPECIAL CARE INSTRUCTIONS: Medications: * Continue to take your medications as directed. If you have been given a prescription for Plavix, please fill it immediately and take as directed. Incision Care: * Your puncture site may have some bruising and minor swelling for about one week. * You will have a small dressing covering your puncture site. You may remove the dressing after 24 hours and shower. You may let the warm soapy water run over it, but be sure to dry the puncture site well and keep it dry. * DO NOT IMMERSE THE INCISION IN A TUB/POOL/etc. UNTIL HEALED. * Puncture sites should be kept covered with a band-aid until it begins to heal. Restrictions: * Depending on whether you leg or arm was punctured to access the arteries, you will be required to lay flat, hold your arm still, or both, for about 4 hours after the procedure to prevent bleeding. * Limit your activity for the first 48 hours. You may walk and go up and down steps. Avoid excessive bending or movement at the puncture site. Possible Complications: * Excessive Swelling - after blood flow is improved you may notice increased swelling in the lower legs. This is a normal response. This usually depends on the amount of blockages in the leg, how long they have been there prior to your procedure and how much blood flow was restored. Elevating your legs will help to improve this. Please notify our office ([phone] ) if the swelling does not go away after lying in bed overnight. * Infection/Drainage/Bleeding - Drainage or bleeding from the puncture site should be minimal. If you have excessive bleeding or drainage, call our office ([phone]) right away. * Pain - You may experience some mild pain or soreness at your puncture site. If your pain does not improve, please contact our office ([phone]). Call your doctor and seek emergent treatment if you develop: * Temperature above 101 degrees * Any fever or chills * Any redness or purulent drainage from the puncture site * Any new dusky/blue colored toes or feet with coolness or sharp or aching pain. SKIN IRRITATION: * You may experience some redness and/or swelling in the area where radiation was administered. If any skin irritation occurs, please contact your family physician. FOLLOW UP VISIT: Keep any scheduled doctor appointments. Diet Recommendations Recommended Home Diet: resume previous diet Procedures Procedures Performed: Left Arm Venogram, Percutaneous Transluminal Angioplasty Subclavian and Axillary Vein Pending Studies Studies pending at discharge: no Medical Emergencies . Who to Call and When: Medical Emergencies: If at any time you feel your situation is an emergency, please call 911 immediately. . Non-Emergent Contact Non-Emergency issues call your: Surgeon . . "Provider Documentation" section prepared by Jon Garcia.
[2017-01-20 14:05] VITALS: BP 149/67; PULSE 70; TEMP 36.9; O2SAT 94
--- NOTE | 2017-01-20 14:13 | Medical Student: [facility] ---
Immediate Operative Summary Operative Date Jan 20, 2017. Pre-Operative Diagnosis Left arm swelling Post-Operative Diagnosis same Procedure(s) Performed LUE venogram with percutaneous transluminal angioplasty of subclavian and axillary vein Surgeon Dr. Garcia Therapeutic Recreation Leader Surgeon(s) none Estimated Blood Loss 5cc Specimens none Anesthesia local Complication(s) None Disposition Recovery Room / PACU
[2017-01-20 14:35] VITALS: BP 136/63; PULSE 77; TEMP 36.9; O2SAT 94
--- NOTE | 2017-01-20 15:00 | DIAGNOSTIC IMAGING REPORT ---
DATE OF PROCEDURE: 01/20/2017 DATE OF PROCEDURE: 01/20/2017. PREOPERATIVE DIAGNOSIS: Left arm swelling. 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 PROCEDURE: Left upper extremity venogram, ultrasound localization of the left brachial vein and balloon angioplasty of the axillary and subclavian veins. SURGEON: Dr. Garcia. ANESTHETIC: Local. PROCEDURE INDICATIONS: The patient is an 89-year-old female with a left upper arm fistula in place. She has developed severe swelling left upper extremity. She does have an ICD pacemaker in place on the left side. 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 Venography and possible intervention was recommended. She understood the risks, options and benefits and agreed to have this procedure. The patient was taken to the angio suite and placed in supine position. After left arm was prepped and draped in a sterile manner, local anesthetic was administered. Ultrasound was then used to locate the left brachial leg. This was punctured approximately 10 cm above the antecubital crease under direct ultrasound guidance. Once this was punctured a micropuncture catheter was inserted. A venogram was performed which showed a narrowing in the subclavian vein approximately 60%. It also suggested the subclavian vein occlusion, right at the insertion site of the wires for the ICD. We then switched out the micropuncture sheath for a 6-Italian sheath. An 0.035 wire with the angled guide catheter were inserted. Using the wire and the catheter the occlusion at the wire insertion site was crossed. We then ballooned this with a 6 x 6 Haines balloon. There was significant recoil. We then used a 10 x 4 Conquest balloon and redilated the area. We then used the same balloon to dilate the axillary vein. These were 2 separate lesions within the vein. Venogram done at that time showed the axillary lesion to be totally resolved. There is still residual stenosis at the subclavian. The 10 x 4 balloon was then advanced up into this area again and this area re-ballooned to 40 atmospheres of pressure. This was held for 2 minutes. A venogram done after that showed it to be patent with no residual narrowing. A collateral flow was also decreased. At that point we decided to pull the sheath. Pressure was applied. Adequate hemostasis was obtained. Sterile dressing was then applied to the puncture site and the patient left the angio suite in good condition and tolerated the procedure well.
[2017-03-24] MEDS ORDERED: Antibiotic PO (09:35)
== END 2017-01-20 15:08 | disposition home or self-care (01) ==
LOC: C.ACU 10:54
PROVIDERS: ATTEND Surgery Vascular Surgery
DX: M79.89 Other specified soft tissue disorders (principal); I82.A12 Acute embolism and thrombosis of left axillary vein; I82.B12 Acute embolism and thrombosis of left subclavian vein; I25.10 Atherosclerotic heart disease of native coronary artery without angina pectoris; Z95.1 Presence of aortocoronary bypass graft; Z95.2 Presence of prosthetic heart valve; I48.91 Unspecified atrial fibrillation; Z95.0 Presence of cardiac pacemaker; E11.22 Type 2 diabetes mellitus with diabetic chronic kidney disease; I12.9 Hypertensive chronic kidney disease with stage 1 through stage 4 chronic kidney disease, or unspecified chronic kidney disease; N18.9 Chronic kidney disease, unspecified; E78.00 Pure hypercholesterolemia, unspecified; Z99.2 Dependence on renal dialysis; Z79.01 Long term (current) use of anticoagulants; Z79.82 Long term (current) use of aspirin; Z79.899 Other long term (current) drug therapy; Z90.710 Acquired absence of both cervix and uterus; Z96.652 Presence of left artificial knee joint; Z83.3 Family history of diabetes mellitus; Z82.49 Family history of ischemic heart disease and other diseases of the circulatory system

== ENCOUNTER → 2017-03-24 | Day surgery (SDC) | payer BC ==
[~2017-03-24] VITALS: Ht 160 cm; Wt 85.0 kg
[~2017-03-24] MED LIST changes: +Antibiotic PO; -CEFAZOLIN 1000MG/55 ML D5W IV SCH; -CEFAZOLIN 2000 MG/60 ML D5W 60 ML IV SCH; +CEFAZOLIN IV 2,000 MG/60 ML D5W IV STA; +CEFAZOLIN SOD 1000MG/55 ML D5W IV ONE; +CEFAZOLIN SOD 1000MG/55 ML D5W IV STA; +CRD200 PO; -D5W AND 1/4NSS 1000 ML IV SCH; +FENTANYL CITRATE INJ 50 MCG/1 ML 2 ML VIAL IV ONE; +FENTANYL CITRATE INJ 50 MCG/1 ML 2 ML VIAL ONE; +HEPARIN SOD (PORCINE) 5000 UNIT/ML 1 ML VIAL IV ONE; +HEPARIN SOD (PORCINE) 5000 UNIT/ML 1 ML VIAL ONE; +LIDOCAINE HCL 1% 20 ML VIAL INJ ONE; +METO25TA3 PO; +MIDAZOLAM HCL 1 MG/ML 2ML VIAL IV ONE; +MIDAZOLAM HCL 1 MG/ML 2ML VIAL ONE; +NURSING VERBAL MED ORDER ONE; -PATIENT'S HEIGHT AND/OR WEIGHT NEEDED SCH
[2017-03-24 09:36] VITALS: BP 132/61; PULSE 70; TEMP 36.8; O2SAT 96; Ht 160 cm; Wt 85.0 kg
--- NOTE | 2017-03-24 11:46 | History and Physical ---
History & Physical Date of Service Mar 24, 2017. History & Physical History & Physical CC: malfunctioning permcath History of Present Illness The patient is an 89 year old female with multiple medical problems, including CAD s/p CABG and aortic valve replacement, a fib, pacemaker/defibrillator, DMII , HTN, ESRD recently started on HD. She recently had a left arm av fistula created and has been attempting to use for HD for past 2-3 weeks, however, the HD unit is only able to use arterial needle at this time and she infiltrated during her last treatment. Permcath has not been functioning well. Denies KUMARI, fever, chills, chest pain, SOB, abd pain, N/V, rest pain, claudication, other complaints. Allergies Coded Allergies: No Known Allergies (Unverified , 06/22/14) Home Medications Scheduled Aspirin (Aspir-81), 81 MG PO DAILY Bumetanide (Bumex), 1 MG PO DAILY Candesartan Cilexetil (Atacand), 2 MG PO DAILY Carvedilol (Carvedilol), 6.25 MG PO BID Ergocalciferol (Vitamin D), 50,000 INTER.UNIT PO WK Famotidine (Pepcid), 20 MG PO HS Ferrous Sulfate (Iron), 325 MG PO DAILY Levothyroxine Sodium (Levothyroxine Sodium), 75 MCG PO DAILY Meclizine Hcl (Meclizine Hcl), 25 MG PO QID Pediatric Multiple Vitamin W/ (Centrum Kids Complete), 1 TAB PO DAILY Rosuvastatin Calcium (Crestor), 10 MG PO DAILY Warfarin Sodium (Coumadin), 2 MG PO DIRECTED Surgical / Medical History Hx Cardiac Surgery: Yes (CABG X 4 AND BIOPROSTETIC AORTIC VALVE REPLACEMENT ( 2012)) Hx Abdominal Surgery: Yes (HYSTERECTOMY; ; PRIOR GASTROSTOMY TUBE) Hx Cancer Surgery: No Hx Thoracic Surgery: Yes (INCISIONAL BREAST BIOPSY) Hx Orthopedic: Yes (LEFT TKA) Hx Urinary Tract Surgery: No Past Medical/Surgical History: CABG, Diabetes, Heart Disease, High Cholesterol , Hypertension, Kidney Disease, Valve Replacement Family History + for DMII, HTN, CAD Social History Smoking Status: Never Smoker Hx Alcohol Use - Type & Amnt: No Hx Substance Use -Type & Amnt: No Review of Systems Constitutional: No chills, No fever, No malaise Skin: No change in color Eyes: No visual changes ENMT: No sore throat Respiratory: No LAND, No cough, No hemoptysis, No short of breath Cardiovascular: + edema (chronic), + palpitations, + syncope, No chest pain, No intermittent claudication Gastrointestinal: + abdominal pain, + nausea, + vomiting Genitourinary - Female: + dysuria, + hematuria Neurologic: + dizziness, + headache, + numbness, + tingling Physical Exam Constitutional: General Apperance: well-nourished, well-developed, obese Level of Distress: NAD, chronically ill Ambulation: ambulation with walker Psychiatric: Mental Status: active & alert, normal mood, normal affect Orientation: oriented except where noted, to time, to place, to person Memory: recent memory normal, remote memory normal Head: normocephalic, atraumatic Eyes: EOM: EOMI ENMT: normal ENT inspection, hearing grossly normal Neck: supple, trachea midline Lungs: Respiratory effort: no dyspnea Auscultation: no wheezing, no rales/crackles, no rhonchi, decreased breath sounds Cardiovascular: Apical Impulse: not displaced Heart Auscultation: no rubs, murmur, pertinent finding (irregular) Peripheral Pulses: Pulses: full and equal, in all extremities except if noted Bruits: none appreciated Carotid Pulse: normal on the left, normal on the right Brachial Pulses: normal on the left, normal on the right Radial Pulse: normal on the left, normal on the right Femoral Pulse: normal on the left, normal on the right Posterior Tibialis Pulse: decreased on the left, decreased on the right Dorsalis Pedis Pulse: decreased on the left, decreased on the right Abdomen: Bowel Sounds: normal Inspection & Palpation: soft, no tenderness, guarding & rebound, distended ( secondary to body habitus) Musculoskeletal: normal strength (5/5 throughout), normal tone Extremities: Upper Right: no cyanosis, no varicosities, Upper Left: no cyanosis, no varicosities, no palpable cord, significant ecchymosis and hematoma noted., good thrill Lower Right: no cyanosis, no varicosities, no palpable cord, trace edema Lower Left: no cyanosis, no varicosities, trace edema Neurologic: Cranial Nerves: grossly intact Sensation: grossly intact Assessment and Plan ASSESSMENT and PLAN: ESRD on HD, Malfunctioning permcath Plan: Patient for a permcath exchange in OR today. I have discussed the risks options and benefits of the procedure with the patient. The patient understands the risks options and benefits and agrees to the procedure.
--- NOTE | 2017-03-24 13:40 | Procedure Note ---
Pre-Mod Sedation Assessment General Date of Moderate Sedation: Mar 24, 2017. Vital Signs: Vital Signs Past 12 Hours Date Time Temp Pulse Resp B/P (MAP) Pulse Ox O2 Delivery O2 Flow Rate FiO2 03/24/17 09:36 36.8 70 20 132/61 (84) 96 Room Air Pre-Sedation Airway Assessment Oral Cavity: Dentures Hx of Sleep Apnea: No Smoking Status: Never Smoker Mallampati Classification: Class I ASA Classification: Class III Notes The planned sedation has been discussed with the patient and consent obtained. I have identified the patient, determined the appropriateness of sedation and have assessed the patient immediately prior to the procedure. All medicine(s) and interventions are by my order.
[2017-03-24 13:51] VITALS: BP 132/61; PULSE 70; TEMP 36.8; O2SAT 96
--- NOTE | 2017-03-24 14:30 | [facility] Post Operative Brief Note ---
Immediate Operative Summary Operative Date Mar 24, 2017. Pre-Operative Diagnosis Malfunctioning permcath Post-Operative Diagnosis Same Procedure(s) Performed Exchange of permcath over a wire Fluoro for postioning Moderate conscious sedation (6884-5909 ) Surgeon Radha Potato Chip Maker Surgeon(s) Virginia Moreira MD Estimated Blood Loss 3 Findings Tip in distal SVC Specimens none Anesthesia Local with conscious sedation Complication(s) None Disposition
--- NOTE | 2017-03-24 14:36 | Procedure Note ---
Post-Moderate Sedation Plan General Date of Moderate Sedation Mar 24, 2017. Vital Signs: Vital Signs Past 12 Hours Date Time Temp Pulse Resp B/P (MAP) Pulse Ox O2 Delivery O2 Flow Rate FiO2 03/24/17 13:51 36.8 70 20 132/61 96 Room Air 03/24/17 09:36 36.8 70 20 132/61 (84) 96 Room Air Review - Discharge Plan Post Moderate Sedation Plan: On clinical assessment, the patient appears to have tolerated the conscious sedation without complications. Patient is recovering as anticipated. Patient will continue to be monitored by nursing and may be discharged when conscious sedation discharge criteria are met.
--- NOTE | 2017-03-24 14:37 | Discharge Instructions ---
Discharge Instructions Date of Service Mar 24, 2017. Visit Reason for Visit: End Stage Renal Disease, Malfunctioning Perm Cath Discharge Discharge Diagnosis / Problem: Malfunctioning permcath Discharge Goals Goal(s): Therapeutic intervention Activity Recommendations Activity Limitations: resume your previous activity Anesthesia . Post Anesthesia Instructions: If you have had General Anesthesia or IV Sedation: * Do not drive today. * Resume driving when surgeon permits. * Do not make important decisions or sign legal documents today. * Call surgeon for: 1. Temperature elevations greater than 101 degrees F. 2. Uncontrollable pain. 3. Excessive bleeding. 4. Persistent nausea and vomiting. 5. Medication intolerance (nausea, vomiting or rash). * For nausea and vomiting use only clear liquids such as: tea, soda, bouillon until nausea subsides, then gradually increase diet as tolerated. * If you have any concerns or questions, call your surgeon's office. If physician is unavailable and it is an emergency, call 911 or go to the nearest emergency room. . Instructions / Follow-Up Instructions / Follow-Up May use permcath for dialysis Call [phone] with any questions or concerns. SPECIAL CARE INSTRUCTIONS: Medications: * Continue to take your medications as directed. If you have been given a prescription for Plavix, please fill it immediately and take as directed. Incision Care: * Your puncture site may have some bruising and minor swelling for about one week. * You will have a small dressing covering your puncture site. You may remove the dressing after 24 hours and shower. You may let the warm soapy water run over it, but be sure to dry the puncture site well and keep it dry. * DO NOT IMMERSE THE INCISION IN A TUB/POOL/etc. UNTIL HEALED. * Puncture sites should be kept covered with a band-aid until it begins to heal. Restrictions: * Depending on whether you leg or arm was punctured to access the arteries, you will be required to lay flat, hold your arm still, or both, for about 4 hours after the procedure to prevent bleeding. * Limit your activity for the first 48 hours. You may walk and go up and down steps. Avoid excessive bending or movement at the puncture site. Possible Complications: * Excessive Swelling - after blood flow is improved you may notice increased swelling in the lower legs. This is a normal response. This usually depends on the amount of blockages in the leg, how long they have been there prior to your procedure and how much blood flow was restored. Elevating your legs will help to improve this. Please notify our office ([phone] ) if the swelling does not go away after lying in bed overnight. * Infection/Drainage/Bleeding - Drainage or bleeding from the puncture site should be minimal. If you have excessive bleeding or drainage, call our office ([phone]) right away. * Pain - You may experience some mild pain or soreness at your puncture site. If your pain does not improve, please contact our office ([phone]). Call your doctor and seek emergent treatment if you develop: * Temperature above 101 degrees * Any fever or chills * Any redness or purulent drainage from the puncture site * Any new dusky/blue colored toes or feet with coolness or sharp or aching pain. SKIN IRRITATION: * You may experience some redness and/or swelling in the area where radiation was administered. If any skin irritation occurs, please contact your family physician. FOLLOW UP VISIT: Keep any scheduled doctor appointments. Diet Recommendations Recommended Home Diet: resume previous diet Procedures Procedures Performed: Exchange of permcath over a wire Fluoro for postioning Moderate conscious sedation ([id number] ) Pending Studies Studies pending at discharge: no Medical Emergencies . Who to Call and When: Medical Emergencies: If at any time you feel your situation is an emergency, please call 911 immediately. . Non-Emergent Contact Non-Emergency issues call your: Surgeon . . "Provider Documentation" section prepared by Jon Garcia. .
[2017-03-24 14:50] VITALS: BP 125/58; PULSE 71; TEMP 36.7; O2SAT 94
[2017-03-24 15:20] VITALS: BP 118/56; PULSE 70; O2SAT 93
--- NOTE | 2017-03-24 15:20 | DIAGNOSTIC IMAGING REPORT ---
DATE OF PROCEDURE: 03/24/2017 PREOPERATIVE DIAGNOSIS: End-stage renal disease, on hemodialysis with nonfunctioning PermCath. POSTOPERATIVE DIAGNOSES: End-stage renal disease, on hemodialysis with nonfunctioning PermCath. PROCEDURE: Tunneled right IJ PermCath exchange. SURGEON: Dr. Jon Garcia. CHARTER BUS DRIVER: Dr. Virginia Moreira. ANESTHESIA: Sedation plus local. ESTIMATED BLOOD LOSS: 3 mL. COMPLICATIONS: None. CONDITION: Stable. INDICATIONS: Mrs. Mary Bryson is an 89-year-old woman with history of coronary artery disease, status post CABG, aortic valve replacement, AFib, pacemaker, type 2 diabetes, hypertension, end-stage renal disease, on hemodialysis. She recently had creation of a left arm AV fistula and has been using it for approximately 2-3 weeks; however, they were only able to use the arterial needle and there was infiltration at her last dialysis session. Her PermCath had not been functioning well and for this reason, she was recommended to undergo PermCath exchange. The risks, benefits and alternatives were discussed with the patient and she consented to the procedure. DESCRIPTION OF PROCEDURE: The patient was taken to the hybrid OR and placed in the supine position. Her right neck and chest were prepped and draped in the usual sterile fashion. A safety timeout was performed and the patient, procedure and the sidedness were correctly identified. Local anesthesia was used to anesthetize the tissue surrounding the catheter. Prior sutures were removed. The patient was given conscious sedation with 1 mg of Versed and 50 mg of fentanyl. An 0.035 Glidewire was placed through the blue port of the catheter under fluoroscopy and visualized to be in the IVC. The tissue surrounding the catheter was freed up using blunt dissection. The cuff was identified and the fibrous tissue surrounding the cuff was incised with an 11 blade scalpel. The catheter was removed over the wire while pressure was held over the IJ access site. A 19 cm catheter was replaced over the wire and visualized to be in good position under fluoroscopy. Both ports aspirated dark venous blood easily. The catheter was sewn in place with nylon suture. Heparin was instilled into both the arterial and venous ports. The patient tolerated the procedure well and there were no immediate complications. A sterile dressing was applied. She was transferred to PACU in stable condition. Dr. Jon Garcia was present for the entire procedure. I, Dr. Garcia was present and scrubed for the entire procedure. NAI
[2017-03-24 15:50] VITALS: BP 110/53; PULSE 70; TEMP 36.8; O2SAT 93
== END | disposition home or self-care (01) ==
LOC: C.ACU 09:04
PROVIDERS: ATTEND Surgery Vascular Surgery
DX: T82.898A Other specified complication of vascular prosthetic devices, implants and grafts, initial encounter (principal); Y83.1 Surgical operation with implant of artificial internal device as the cause of abnormal reaction of the patient, or of later complication, without mention of misadventure at the time of the procedure; N18.6 End stage renal disease; Z99.2 Dependence on renal dialysis; I25.10 Atherosclerotic heart disease of native coronary artery without angina pectoris; I48.91 Unspecified atrial fibrillation; E11.22 Type 2 diabetes mellitus with diabetic chronic kidney disease; I12.0 Hypertensive chronic kidney disease with stage 5 chronic kidney disease or end stage renal disease; Z95.0 Presence of cardiac pacemaker; Z95.2 Presence of prosthetic heart valve

== ENCOUNTER 2017-04-03 05:46 | Day surgery (SDC) | payer BC ==
[~2017-04-03] VITALS: Ht 160 cm; Wt 85.0 kg
[~2017-04-03 05:46] MED LIST changes: -CEFAZOLIN IV 2,000 MG/60 ML D5W IV STA; -CEFAZOLIN SOD 1000MG/55 ML D5W IV ONE; -CEFAZOLIN SOD 1000MG/55 ML D5W IV STA; -CRD200 PO; -FENTANYL CITRATE INJ 50 MCG/1 ML 2 ML VIAL IV ONE; -FENTANYL CITRATE INJ 50 MCG/1 ML 2 ML VIAL ONE; -HEPARIN SOD (PORCINE) 5000 UNIT/ML 1 ML VIAL IV ONE; -HEPARIN SOD (PORCINE) 5000 UNIT/ML 1 ML VIAL ONE; -LIDOCAINE HCL 1% 20 ML VIAL INJ ONE; -LNX125 PO; -METO25TA3 PO; -MIDAZOLAM HCL 1 MG/ML 2ML VIAL IV ONE; -MIDAZOLAM HCL 1 MG/ML 2ML VIAL ONE; -NURSING VERBAL MED ORDER ONE; -OXYC-57 PO
[2017-04-03] MEDS ORDERED: D5W AND 1/4NSS 1,000 ML IV SCH (06:00)
[2017-04-03] MEDS ORDERED: CEFAZOLIN 1000MG/55 ML D5W IV SCH (06:00)
[2017-04-03] MEDS ORDERED: METO25TA3 PO (06:22)
[2017-04-03] MEDS ORDERED: CRD200 PO (06:22)
[2017-04-03 06:33] VITALS: BP 175/74; PULSE 70; TEMP 36.6; O2SAT 97; Ht 160 cm; Wt 85.0 kg
--- NOTE | 2017-04-03 06:58 | History and Physical ---
History & Physical Date of Service Apr 03, 2017. 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 She has developed swelling of the left upper extremity which is slightly better. She does have poor runs from her fistula. Denies KUMARI, fever, chills, chest pain, SOB, abd pain, N/V, rest pain, claudication, other complaints. Allergies Coded Allergies: No Known Allergies (Unverified , 06/22/14) Home Medications Scheduled Aspirin (Aspir-81), 81 MG PO DAILY Bumetanide (Bumex), 1 MG PO DAILY Candesartan Cilexetil (Atacand), 2 MG PO DAILY Carvedilol (Carvedilol), 6.25 MG PO BID Ergocalciferol (Vitamin D), 50,000 INTER.UNIT PO WK Famotidine (Pepcid), 20 MG PO HS Ferrous Sulfate (Iron), 325 MG PO DAILY Levothyroxine Sodium (Levothyroxine Sodium), 75 MCG PO DAILY Meclizine Hcl (Meclizine Hcl), 25 MG PO QID Pediatric Multiple Vitamin W/ (Centrum Kids Complete), 1 TAB PO DAILY Rosuvastatin Calcium (Crestor), 10 MG PO DAILY Warfarin Sodium (Coumadin), 2 MG PO DIRECTED Surgical / Medical History Hx Cardiac Surgery: Yes (CABG X 4 AND BIOPROSTETIC AORTIC VALVE REPLACEMENT ( 2012)) Hx Abdominal Surgery: Yes (HYSTERECTOMY; ; PRIOR GASTROSTOMY TUBE) Hx Cancer Surgery: No Hx Thoracic Surgery: Yes (INCISIONAL BREAST BIOPSY) Hx Orthopedic: Yes (LEFT TKA) Hx Urinary Tract Surgery: No Past Medical/Surgical History: CABG, Diabetes, Heart Disease, High Cholesterol , Hypertension, Kidney Disease, Valve Replacement Family History + for DMII, HTN, CAD Social History Smoking Status: Never Smoker Hx Alcohol Use - Type & Amnt: No Hx Substance Use -Type & Amnt: No Review of Systems Constitutional: No chills, No fever, No malaise Skin: No change in color Eyes: No visual changes ENMT: No sore throat Respiratory: No LAND, No cough, No hemoptysis, No short of breath Cardiovascular: + edema (chronic), + palpitations, + syncope, No chest pain, No intermittent claudication Gastrointestinal: + abdominal pain, + nausea, + vomiting Genitourinary - Female: + dysuria, + hematuria Neurologic: + dizziness, + headache, + numbness, + tingling Physical Exam Constitutional: General Apperance: well-nourished, well-developed, obese Level of Distress: NAD, chronically ill Ambulation: ambulation with walker Psychiatric: Mental Status: active & alert, normal mood, normal affect Orientation: oriented except where noted, to time, to place, to person Memory: recent memory normal, remote memory normal Head: normocephalic, atraumatic Eyes: EOM: EOMI ENMT: normal ENT inspection, hearing grossly normal Neck: supple, trachea midline Lungs: Respiratory effort: no dyspnea Auscultation: no wheezing, no rales/crackles, no rhonchi, decreased breath sounds Cardiovascular: Apical Impulse: not displaced Heart Auscultation: no rubs, murmur, pertinent finding (irregular) Peripheral Pulses: Pulses: full and equal, in all extremities except if noted Bruits: none appreciated Carotid Pulse: normal on the left, normal on the right Brachial Pulses: normal on the left, normal on the right Radial Pulse: normal on the left, normal on the right Femoral Pulse: normal on the left, normal on the right Posterior Tibialis Pulse: decreased on the left, decreased on the right Dorsalis Pedis Pulse: decreased on the left, decreased on the right Abdomen: Bowel Sounds: normal Inspection & Palpation: soft, no tenderness, guarding & rebound, distended ( secondary to body habitus) Musculoskeletal: normal strength (5/5 throughout), normal tone Extremities: Upper Right: no cyanosis, no varicosities, Upper Left: no cyanosis, no varicosities, no palpable cord, significant ecchymosis and hematoma noted., good thrill, mild edema Lower Right: no cyanosis, no varicosities, no palpable cord, trace edema Lower Left: no cyanosis, no varicosities, trace edema Neurologic: Cranial Nerves: grossly intact Sensation: grossly intact Assessment and Plan ASSESSMENT and PLAN: ESRD on HD, Malfunctioning fistula Plan: Patient for a fistulogram possible intervention. I have discussed the risks options and benefits of the procedure with the patient. The patient understands the risks options and benefits and agrees to the procedure.
[2017-04-03] MEDS ORDERED: CEFAZOLIN SOD 1000MG/55 ML D5W IV ONE (07:38)
[2017-04-03] MEDS ORDERED: MIDAZOLAM HCL 1 MG/ML 2ML VIAL ONE (07:42)
[2017-04-03] MEDS ORDERED: FENTANYL CITRATE INJ 50 MCG/1 ML 2 ML VIAL ONE (07:42)
--- NOTE | 2017-04-03 07:46 | Procedure Note ---
Pre-Mod Sedation Assessment General Date of Moderate Sedation: Apr 03, 2017. Vital Signs: Vital Signs Past 12 Hours Date Time Temp Pulse Resp B/P (MAP) Pulse Ox O2 Delivery O2 Flow Rate FiO2 04/03/17 06:33 36.6 70 20 175/74 (107) 97 Room Air Pre-Sedation Airway Assessment Oral Cavity: Dentures Smoking Status: Never Smoker Mallampati Classification: Class I ASA Classification: Class III Notes The planned sedation has been discussed with the patient and consent obtained. I have identified the patient, determined the appropriateness of sedation and have assessed the patient immediately prior to the procedure. All medicine(s) and interventions are by my order.
[2017-04-03 07:47] VITALS: BP 175/74; PULSE 70; TEMP 36.6; O2SAT 97
[2017-04-03] MEDS ORDERED: FENTANYL CITRATE INJ 50 MCG/1 ML 2 ML VIAL IV ONE (08:28)
[2017-04-03] MEDS ORDERED: LIDOCAINE HCL 1% 20 ML VIAL INJ ONE (08:41)
[2017-04-03] MEDS ORDERED: OPTIRAY 300 IV ONE (08:41)
--- NOTE | 2017-04-03 08:46 | [facility] Post Operative Brief Note ---
Immediate Operative Summary Operative Date Apr 03, 2017. Pre-Operative Diagnosis Malfunctioning Fistula Post-Operative Diagnosis Same Procedure(s) Performed Fistulogram, Percutaneous Transluminal Angioplasty Central Venous. Surgeon Dr. Garcia Naval Designer Surgeon(s) None Estimated Blood Loss 3 Findings good flow post area captain Specimens None Anesthesia Local Complication(s) None Disposition
--- NOTE | 2017-04-03 08:49 | Discharge Instructions ---
Discharge Instructions Date of Service Apr 03, 2017. Visit Reason for Visit: End Stage Renal Disease, Malfunctioning Fistula Discharge Discharge Diagnosis / Problem: Malfunctioning fistula Discharge Goals Goal(s): Therapeutic intervention Activity Recommendations Activity Limitations: per Instructions/Follow-up section Lifting Limitations: none Anesthesia . Post Anesthesia Instructions: If you have had General Anesthesia or IV Sedation: * Do not drive today. * Resume driving when surgeon permits. * Do not make important decisions or sign legal documents today. * Call surgeon for: 1. Temperature elevations greater than 101 degrees F. 2. Uncontrollable pain. 3. Excessive bleeding. 4. Persistent nausea and vomiting. 5. Medication intolerance (nausea, vomiting or rash). * For nausea and vomiting use only clear liquids such as: tea, soda, bouillon until nausea subsides, then gradually increase diet as tolerated. * If you have any concerns or questions, call your surgeon's office. If physician is unavailable and it is an emergency, call 911 or go to the nearest emergency room. . Instructions / Follow-Up Instructions / Follow-Up SPECIAL CARE INSTRUCTIONS: Medications: * Continue to take your medications as directed. If you have been given a prescription for Plavix, please fill it immediately and take as directed. Incision Care: * Your puncture site may have some bruising and minor swelling for about one week. * You will have a small dressing covering your puncture site. You may remove the dressing after 24 hours and shower. You may let the warm soapy water run over it, but be sure to dry the puncture site well and keep it dry. * DO NOT IMMERSE THE INCISION IN A TUB/POOL/etc. UNTIL HEALED. * Puncture sites should be kept covered with a band-aid until it begins to heal. Restrictions: * Depending on whether you leg or arm was punctured to access the arteries, you will be required to lay flat, hold your arm still, or both, for about 4 hours after the procedure to prevent bleeding. * Limit your activity for the first 48 hours. You may walk and go up and down steps. Avoid excessive bending or movement at the puncture site. Possible Complications: * Excessive Swelling - after blood flow is improved you may notice increased swelling in the lower legs. This is a normal response. This usually depends on the amount of blockages in the leg, how long they have been there prior to your procedure and how much blood flow was restored. Elevating your legs will help to improve this. Please notify our office ([phone] ) if the swelling does not go away after lying in bed overnight. * Infection/Drainage/Bleeding - Drainage or bleeding from the puncture site should be minimal. If you have excessive bleeding or drainage, call our office ([phone]) right away. * Pain - You may experience some mild pain or soreness at your puncture site. If your pain does not improve, please contact our office ([phone]). Call your doctor and seek emergent treatment if you develop: * Temperature above 101 degrees * Any fever or chills * Any redness or purulent drainage from the puncture site * Any new dusky/blue colored toes or feet with coolness or sharp or aching pain. SKIN IRRITATION: * You may experience some redness and/or swelling in the area where radiation was administered. If any skin irritation occurs, please contact your family physician. FOLLOW UP VISIT: Keep any scheduled doctor appointments. Diet Recommendations Recommended Home Diet: resume previous diet Procedures Procedures Performed: Fistulogram, Percutaneous Transluminal Angioplasty Central Venous. Pending Studies Studies pending at discharge: no Medical Emergencies . Who to Call and When: Medical Emergencies: If at any time you feel your situation is an emergency, please call 911 immediately. . Non-Emergent Contact Non-Emergency issues call your: Surgeon . . "Provider Documentation" section prepared by Jon Garcia. .
[2017-04-03 08:54] VITALS: BP 183/75; PULSE 70; TEMP 36.6; O2SAT 92
--- NOTE | 2017-04-03 09:01 | [facility] Operative Report ---
Operative Report Operative Date Apr 03, 2017. Pre-Operative Diagnosis Malfunctioning Fistula Post-Operative Diagnosis Occluded left subclavian vein Procedure(s) Performed Left upper arm fistulogram, Energy Derivatives Trader central vein Surgeon Dr. Garcia Multiple Tube Winding Machine Operator Surgeon(s) None Estimated Blood Loss 3 Findings good thrill Specimens None Anesthesia Local Complication(s) None Disposition Indications Malfunctioning fistula Description of Procedure Patient was taken to the angio suite. the left arm was prepped and draped in the usual fashion. local anesthetic was then administered. a puncture was made of the left upper arm fistula at the antecubital fossa using a micropuncture technique. the micropuncture sheath was inserted. a fistulogram was then performed. the left upper arm fistula was widely patent with a few moderated sized branches coming off the fistula. 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 using an 035 angled guidewire the occlusion was traversed. an 035 quickcross was then inserted. injection showed the ind of the catheter to be in the true lumen of the superior vena cava. the 035 guidewire was then reinserted. a 6 x 100 balloon was then inserted. the occluded area was then ballooned. post sailboat captain showed good improvement of the innominate vein and somewhat improved patency of the left subclavian vein. the 6x100 balloon was then switched to an 8x40 armada balloon. the area of the subclavian vein was then redilated with the 8x40 balloon to 18 atmospheres of pressure. post inflation injection showed good results with a much improved patency of the left subclavian vein. the wire and balloon were removed. the sheath was then pulled and pressure applied. adequate hemostasis was obtained. sterile dressing was applied to the wound. the patient left the angio suite in good condition and tolerated the procedure well. I attest to the content of the Intraoperative Record and any orders documented therein. Any exceptions are noted below.
[2017-04-03 09:10] VITALS: BP 153/67; PULSE 70; O2SAT 94
[2017-04-04] MEDS ORDERED: CEFAZOLIN 2000 MG/60 ML D5W 60 ML IV SCH (06:00)
== END 2017-04-03 09:35 | disposition home or self-care (01) ==
LOC: C.ACU 05:46
PROVIDERS: ATTEND Surgery Vascular Surgery
DX: N18.6 End stage renal disease (principal); T82.49XA Other complication of vascular dialysis catheter, initial encounter; I25.10 Atherosclerotic heart disease of native coronary artery without angina pectoris; Z98.61 Coronary angioplasty status; Z95.2 Presence of prosthetic heart valve; Z95.0 Presence of cardiac pacemaker; E11.9 Type 2 diabetes mellitus without complications; I10 Essential (primary) hypertension; Z79.82 Long term (current) use of aspirin; Z79.01 Long term (current) use of anticoagulants; Z90.710 Acquired absence of both cervix and uterus; Z96.652 Presence of left artificial knee joint; E78.00 Pure hypercholesterolemia, unspecified; Z83.3 Family history of diabetes mellitus; Z82.49 Family history of ischemic heart disease and other diseases of the circulatory system; Y83.2 Surgical operation with anastomosis, bypass or graft as the cause of abnormal reaction of the patient, or of later complication, without mention of misadventure at the time of the procedure

== ENCOUNTER 2017-05-15 10:35 | Day surgery (SDC) | payer BC ==
[~2017-05-15] VITALS: Ht 160 cm; Wt 83.0 kg
--- NOTE | 2017-05-15 06:02 | History and Physical ---
History & Physical Date of Service May 15, 2017. 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 She has a fistula which is now working. She is here for removal of her permcath. Denies KUMARI, fever, chills, chest pain, SOB, abd pain, N/ V, rest pain, claudication, other complaints. Allergies Coded Allergies: No Known Allergies (Unverified , 06/22/14) Home Medications Scheduled Aspirin (Aspir-81), 81 MG PO DAILY Bumetanide (Bumex), 1 MG PO DAILY Candesartan Cilexetil (Atacand), 2 MG PO DAILY Carvedilol (Carvedilol), 6.25 MG PO BID Ergocalciferol (Vitamin D), 50,000 INTER.UNIT PO WK Famotidine (Pepcid), 20 MG PO HS Ferrous Sulfate (Iron), 325 MG PO DAILY Levothyroxine Sodium (Levothyroxine Sodium), 75 MCG PO DAILY Meclizine Hcl (Meclizine Hcl), 25 MG PO QID Pediatric Multiple Vitamin W/ (Centrum Kids Complete), 1 TAB PO DAILY Rosuvastatin Calcium (Crestor), 10 MG PO DAILY Warfarin Sodium (Coumadin), 2 MG PO DIRECTED Surgical / Medical History Hx Cardiac Surgery: Yes (CABG X 4 AND BIOPROSTETIC AORTIC VALVE REPLACEMENT ( 2012)) Hx Abdominal Surgery: Yes (HYSTERECTOMY; ; PRIOR GASTROSTOMY TUBE) Hx Cancer Surgery: No Hx Thoracic Surgery: Yes (INCISIONAL BREAST BIOPSY) Hx Orthopedic: Yes (LEFT TKA) Hx Urinary Tract Surgery: No Past Medical/Surgical History: CABG, Diabetes, Heart Disease, High Cholesterol , Hypertension, Kidney Disease, Valve Replacement Family History + for DMII, HTN, CAD Social History Smoking Status: Never Smoker Hx Alcohol Use - Type & Amnt: No Hx Substance Use -Type & Amnt: No Review of Systems Constitutional: No chills, No fever, No malaise Skin: No change in color Eyes: No visual changes ENMT: No sore throat Respiratory: No LAND, No cough, No hemoptysis, No short of breath Cardiovascular: + edema (chronic), + palpitations, + syncope, No chest pain, No intermittent claudication Gastrointestinal: + abdominal pain, + nausea, + vomiting Genitourinary - Female: + dysuria, + hematuria Neurologic: + dizziness, + headache, + numbness, + tingling Physical Exam Constitutional: General Apperance: well-nourished, well-developed, obese Level of Distress: NAD, chronically ill Ambulation: ambulation with walker Psychiatric: Mental Status: active & alert, normal mood, normal affect Orientation: oriented except where noted, to time, to place, to person Memory: recent memory normal, remote memory normal Head: normocephalic, atraumatic Eyes: EOM: EOMI ENMT: normal ENT inspection, hearing grossly normal Neck: supple, trachea midline Lungs: Respiratory effort: no dyspnea Auscultation: no wheezing, no rales/crackles, no rhonchi, decreased breath sounds Cardiovascular: Apical Impulse: not displaced Heart Auscultation: no rubs, murmur, pertinent finding (irregular) Peripheral Pulses: Pulses: full and equal, in all extremities except if noted Bruits: none appreciated Carotid Pulse: normal on the left, normal on the right Brachial Pulses: normal on the left, normal on the right Radial Pulse: normal on the left, normal on the right Femoral Pulse: normal on the left, normal on the right Posterior Tibialis Pulse: decreased on the left, decreased on the right Dorsalis Pedis Pulse: decreased on the left, decreased on the right Abdomen: Bowel Sounds: normal Inspection & Palpation: soft, no tenderness, guarding & rebound, distended ( secondary to body habitus) Musculoskeletal: normal strength (5/5 throughout), normal tone Extremities: Upper Right: no cyanosis, no varicosities, Upper Left: no cyanosis, no varicosities, no palpable cord, significant ecchymosis and hematoma noted., good thrill, mild edema Lower Right: no cyanosis, no varicosities, no palpable cord, trace edema Lower Left: no cyanosis, no varicosities, trace edema Neurologic: Cranial Nerves: grossly intact Sensation: grossly intact Assessment and Plan ASSESSMENT and PLAN: ESRD on HD, Functioning fistula Plan: Patient for removal of her permcath. I have discussed the risks options and benefits of the procedure with the patient. The patient understands the risks options and benefits and agrees to the procedure.
[~2017-05-15 10:35] MED LIST changes: -Antibiotic PO; +CRD200 PO; -METO-217 PO; +METO25TA3 PO
[2017-05-15 10:53] VITALS: BP 189/73; PULSE 70; TEMP 37; O2SAT 97; Ht 160 cm; Wt 83.0 kg
[2017-05-15 12:48] VITALS: BP 189/73; PULSE 70; TEMP 37; O2SAT 97
[2017-05-15] MEDS ORDERED: LIDOCAINE HCL 1% 20 ML VIAL ONE (14:16)
[2017-05-15] MEDS ORDERED: LIDOCAINE HCL 1% 20 ML VIAL INFIL ONE (16:49)
--- NOTE | 2017-05-15 16:49 | [facility] Operative Report ---
Operative Report Operative Date May 15, 2017. Pre-Operative Diagnosis Functioning Fisuta Post-Operative Diagnosis Same Procedure(s) Performed Perm Catheter Removal Surgeon Radha Magnetic Prospecting Supervisor Surgeon(s) Tesfaye Farris, Fellow Findings catheter and cuff removed Specimens a; Perm Cath Anesthesia Local Complication(s) None This is a 89-year-old female with a functioning fistula in her arm. She is here for PermCath removal. She understood the risks options and benefits and agreed to the procedure. Disposition Description of Procedure The patient was taken to the angio suite and placed in the supine position. The right side of the neck, chest wall and catheter were prepped and draped in a sterile manner. Local anesthesia was then accomplished. Using sharp and blunt dissection, the cuff of the permcath was freed up from the surrounding fibrous tissue. The permcath and cuff were completely removed. Pressure was then applied and adequate hemostasis was obtained. A sterile dressing was then applied. The patient left the angio suite in good condition and tolerated the procedure well. I attest to the content of the Intraoperative Record and any orders documented therein. Any exceptions are noted below.
--- NOTE | 2017-05-15 16:54 | Discharge Instructions ---
Discharge Instructions Date of Service May 15, 2017. Visit Reason for Visit: End Stage Renal Disease Discharge Discharge Diagnosis / Problem: Functioning fistula Discharge Goals Goal(s): Therapeutic intervention Activity Recommendations Activity Limitations: resume your previous activity Exercise/Sports Limitations: none Shower/Bathe: tomorrow (.) Anesthesia . Post Anesthesia Instructions: If you have had General Anesthesia or IV Sedation: * Do not drive today. * Resume driving when surgeon permits. * Do not make important decisions or sign legal documents today. * Call surgeon for: 1. Temperature elevations greater than 101 degrees F. 2. Uncontrollable pain. 3. Excessive bleeding. 4. Persistent nausea and vomiting. 5. Medication intolerance (nausea, vomiting or rash). * For nausea and vomiting use only clear liquids such as: tea, soda, bouillon until nausea subsides, then gradually increase diet as tolerated. * If you have any concerns or questions, call your surgeon's office. If physician is unavailable and it is an emergency, call 911 or go to the nearest emergency room. . Instructions / Follow-Up Instructions / Follow-Up Call [phone] with any questions or concerns. SPECIAL CARE INSTRUCTIONS: Medications: * Continue to take your medications as directed. If you have been given a prescription for Plavix, please fill it immediately and take as directed. Incision Care: * Your puncture site may have some bruising and minor swelling for about one week. * You will have a small dressing covering your puncture site. You may remove the dressing after 24 hours and shower. You may let the warm soapy water run over it, but be sure to dry the puncture site well and keep it dry. * DO NOT IMMERSE THE INCISION IN A TUB/POOL/etc. UNTIL HEALED. * Puncture sites should be kept covered with a band-aid until it begins to heal. Restrictions: * Depending on whether you leg or arm was punctured to access the arteries, you will be required to lay flat, hold your arm still, or both, for about 4 hours after the procedure to prevent bleeding. * Limit your activity for the first 48 hours. You may walk and go up and down steps. Avoid excessive bending or movement at the puncture site. Possible Complications: * Excessive Swelling - after blood flow is improved you may notice increased swelling in the lower legs. This is a normal response. This usually depends on the amount of blockages in the leg, how long they have been there prior to your procedure and how much blood flow was restored. Elevating your legs will help to improve this. Please notify our office ([phone] ) if the swelling does not go away after lying in bed overnight. * Infection/Drainage/Bleeding - Drainage or bleeding from the puncture site should be minimal. If you have excessive bleeding or drainage, call our office ([phone]) right away. * Pain - You may experience some mild pain or soreness at your puncture site. If your pain does not improve, please contact our office ([phone]). Call your doctor and seek emergent treatment if you develop: * Temperature above 101 degrees * Any fever or chills * Any redness or purulent drainage from the puncture site * Any new dusky/blue colored toes or feet with coolness or sharp or aching pain. SKIN IRRITATION: * You may experience some redness and/or swelling in the area where radiation was administered. If any skin irritation occurs, please contact your family physician. FOLLOW UP VISIT: Keep any scheduled doctor appointments. Diet Recommendations Recommended Home Diet: resume previous diet Procedures Procedures Performed: Perm Catheter Removal Pending Studies Studies pending at discharge: no Medical Emergencies . Who to Call and When: Medical Emergencies: If at any time you feel your situation is an emergency, please call 911 immediately. . Non-Emergent Contact Non-Emergency issues call your: Surgeon . . "Provider Documentation" section prepared by Jon Garcia. .
[2017-05-15 17:00] VITALS: BP 158/62; PULSE 76; TEMP 36.9; O2SAT 96
[2017-05-15 17:30] VITALS: BP 134/75; PULSE 70; TEMP 36.7; O2SAT 95
== END 2017-05-15 17:45 | disposition home or self-care (01) ==
LOC: C.ACU 10:35
PROVIDERS: ATTEND Surgery Vascular Surgery
DX: Z49.01 Encounter for fitting and adjustment of extracorporeal dialysis catheter (principal); E11.22 Type 2 diabetes mellitus with diabetic chronic kidney disease; I12.0 Hypertensive chronic kidney disease with stage 5 chronic kidney disease or end stage renal disease; N18.6 End stage renal disease; Z99.2 Dependence on renal dialysis; I48.91 Unspecified atrial fibrillation; I25.10 Atherosclerotic heart disease of native coronary artery without angina pectoris; E78.00 Pure hypercholesterolemia, unspecified; Z95.1 Presence of aortocoronary bypass graft; Z95.2 Presence of prosthetic heart valve; Z95.810 Presence of automatic (implantable) cardiac defibrillator; Z79.01 Long term (current) use of anticoagulants; Z79.82 Long term (current) use of aspirin; Z79.899 Other long term (current) drug therapy